=== PATIENT | female | born 1970 | race Asian ===

== ENCOUNTER 2016-03-18 07:05 | Emergency (ER) | payer MEDICARE, MEDICAID ==
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
== END 2016-03-18 08:25 | disposition home or self-care (01) ==
LOC: ER 07:05
DX: T74.21XA Adult sexual abuse, confirmed, initial encounter (principal); K29.70 Gastritis, unspecified, without bleeding; I10 Essential (primary) hypertension; Z88.1 Allergy status to other antibiotic agents; Z88.0 Allergy status to penicillin; Y07.9 Unspecified perpetrator of maltreatment and neglect
CPT/HCPCS: 81025-TC

== ENCOUNTER 2016-08-26 13:36 | Emergency (ER) | payer MEDICARE, MEDICAID ==
--- NOTE | 2016-08-26 14:13 | ED Physician Chart ---
Chief Complaint/HPI - Patient Information Date Seen:: 08/26/16 Time Seen:: 13:40 Chief Complaint:: Transient nausea. History of Present Illness:: Pt had transient nausea while she was having lunch earlier today. No vomiting. No unusual foodstuff ingestion. No dyspnea or lightheadedness. No vomiting/ diarrhea. Pt now feels well without recurrent N/V/D. No fever. No abdominal pain or discomfort. No lightheadedness. Allergies:: Allergies Allergy/AdvReac Type Severity Reaction Status Date / Time aspirin Allergy Verified 03/18/16 08:05 chicken derived Allergy Verified 03/18/16 08:07 ciprofloxacin [From Cipro] Allergy Verified 03/18/16 08:05 egg Allergy Verified 03/18/16 08:07 ibuprofen Allergy Verified 03/18/16 08:06 peanut Allergy Verified 03/18/16 08:06 Penicillins Allergy Verified 03/18/16 07:35 pork derived (porcine) Allergy Verified 08/26/16 13:50 shellfish derived Allergy Verified 03/18/16 08:06 acetaminophen AdvReac Verified 03/18/16 08:18 [From Darvocet-N] codeine AdvReac Verified 03/18/16 08:17 hydrocodone [From Vicodin] AdvReac Verified 03/18/16 08:19 iodine AdvReac Verified 03/18/16 08:18 meperidine [From Demerol] AdvReac Verified 03/18/16 08:19 morphine AdvReac Verified 03/18/16 08:18 propoxyphene AdvReac Verified 03/18/16 08:18 [From Darvocet-N] Vitals:: Vital Signs - 8 hr 08/26/16 13:50 Temp 98.6 F HR 114 RR 18 BP 160/100 O2 Sat % 95 Historian:: Patient Family MD/PCP:: Dr. Keene LMP:: Hysterectomy ' Review:: Nurse's Note Reviewed Review of Systems - Review of Systems General/Constitutional: No fever, No weight loss, No weakness, No edema, No loss of appetite Skin: No skin lesions Head: No headache, No light-headedness Eyes: No pain, No diplopia, Other ( R eye blindness since .) ENT: No earache, No nasal drainage, No sore throat Neck: No neck pain, No swelling, No thyromegaly, No stiffness, No mass noted Cardio Vascular: No chest pain, No palpitations, No edema Pulmonary: No SOB, No cough, No wheezing GI: Nausea (transient), No vomiting, No diarrhea, No pain G/U: No dysuria, No frequency, No hematuria Musculoskeletal: No bone or joint pain, No back pain, No muscle pain Endocrine: No polyuria, No polydipsia Psychiatric: Prior psych history, No depression Hematopoietic: No bruising, No lymphadenopathy Allergic/Immuno: No urticaria, No angioedema Neurological: No syncope, No focal symptoms, No weakness, No paresthesia, No headache, No dizziness, No confusion, No vertigo Past Medical History - Past Medical History Past Medical History: HTN, Asthma/COPD, Thyroid disorder, Other (Congenital R eye blindness, IBS.) Family History: Diabetes Melitus (mother), HTN (parents.) Social History: Non Smoker, No Alcohol, No Drug Use, Single, Other (lives with parents.) Employment:: on disability. Surgical History: Hysterectomy (), other (Tubal ligation ) Psychiatricy History: Schizophrenia Medication: Reviewed Family Medical History - Family Member Father History Unknown: Yes Ethnicity: Non- Living Status: Still Living Hx Family Cancer: No Hx Family Coronary Artery Disease: No Hx Family Congestive Heart Failure: No Hx Family Hypertension: Yes Hx Family Stroke: No Hx Family Diabetes: Yes Hx Family Seizures: No Hx Family Dementia: No Hx Family AIDS: No Hx Family HIV: No Hx Family COPD: No Hx Family Hepatitis: No Hx Family Psychiatric Problems: No Hx Family Tuberculosis: No Mother History Unknown: Yes Ethnicity: Non- Living Status: Still Living Hx Family Hypertension: Yes Physical Exam - Physical Examination General/Constitutional: Awake, Well-developed, well-nourished (female), Alert, No distress, Non-toxic appearing, Ambulatory Other Gen/Cons comments:: breathes comfortably, speaks clearly, interacts normally, and ambulates without difficulty. Head: Atraumatic Other Eyes comments:: R eye shows chronic changes with opacification of the pupil. L eye is normal Skin: Nl inspection, No rash, No skin lesions, No ecchymosis, Well hydrated, No lymphadenopathy ENMT: External ears, nose nl, Nasal exam nl, Oropharynx nl, Tonsils nl Neck: Nontender, Full ROM w/o pain, No JVD, No nuchal rigidity, No mass, No stridor Respiratory: Nl effort/Exclusion, Clear to Auscultation, No Wheeze/Rhonchi/Rales Cardio Vascular: RRR, No murmur, gallop, rubs GI: No tenderness/rebounding/guarding, No organomegaly, Normal BS's, Nondistended, No mass/bruits Other GI comments:: Abdomen is soft. Extremities: No edema Neuro/Psych: Alert/oriented (oriented x 3), Judgement/insight normal, Mood normal, Normal gait, No focal deficits (except R eye blindness.) ED Septic Shock - . Is Septic Shock (SBP<90, OR Lactate>4 mmol\L) present?: No - <6hrs of presentation: Vital Signs: Vital Signs - 8 hr 08/26/16 13:50 Temp 98.6 F HR 114 RR 18 BP 160/100 O2 Sat % 95 Reassessment (Disposition) - Reassessment Reassessment:: 1500 Pt has been repeatedly evaluated. Pt feels well and has been tolerating oral hydration well without N/V/D. Pt breathes comfortably and ambulates without difficulty. Pt requests to go home now and does not want further observation/management in hospital. Aftercare instructions have been given. Her father will drive her home. Reassessment Condition:: Improved - Diagnosis Diagnosis:: Transient nausea c/w food intolerance. Stable and currently asymptomatic. - Aftercare/Follow up Instructions Aftercare/Follow-Up Instructions:: Refer to Discharge Instructions Notes:: Continue present care. Clear liquid for now. May advance diet as tolerated starting this evening. F/U with PCP Dr. Keene in one day for recheck. Return to ER immediately if condition worsens or if any further questions/problems. Medication Prescribed:: None - Patient Disposition Discharge/Transfer:: Home Time:: 15:05 Condition at Disposition:: Stable, Improved
== END 2016-08-26 15:12 | disposition home or self-care (01) ==
LOC: ER 13:36
DX: K90.49 Malabsorption due to intolerance, not elsewhere classified (principal); R11.0 Nausea; I10 Essential (primary) hypertension; J45.909 Unspecified asthma, uncomplicated; J44.9 Chronic obstructive pulmonary disease, unspecified; E07.9 Disorder of thyroid, unspecified; F20.9 Schizophrenia, unspecified; Z90.710 Acquired absence of both cervix and uterus; Z88.6 Allergy status to analgesic agent; Z91.012 Allergy to eggs; Z91.010 Allergy to peanuts; Z91.09 Other allergy status, other than to drugs and biological substances
CPT/HCPCS: Z7502

== ENCOUNTER 2017-08-27 07:59 | Inpatient (IN) | payer MEDICARE, MEDICAID ==
--- NOTE | 2017-08-27 08:34 | ED Physician Chart ---
ED Chief Complaint/HPI - Patient Information Date Seen:: 08/27/17 Time Seen:: 08:15 Chief Complaint:: Chest Pain History of Present Illness:: onset x 24 hours of intermittent, exertional pressure type chest pain; pt denies trauma, H/As, S/T, neck pain, SOB, cough, Abd. Pain, A/N/V/D/C, fever, chills, or urinary s/s Allergies:: Allergies Allergy/AdvReac Type Severity Reaction Status Date / Time aspirin Allergy Verified 03/18/16 08:05 chicken derived Allergy Verified 03/18/16 08:07 ciprofloxacin [From Cipro] Allergy Verified 03/18/16 08:05 egg Allergy Verified 03/18/16 08:07 ibuprofen Allergy Verified 03/18/16 08:06 peanut Allergy Verified 03/18/16 08:06 Penicillins Allergy Verified 03/18/16 07:35 pork derived (porcine) Allergy Verified 08/26/16 13:50 shellfish derived Allergy Verified 03/18/16 08:06 acetaminophen AdvReac Verified 03/18/16 08:18 [From Darvocet-N] codeine AdvReac Verified 03/18/16 08:17 hydrocodone [From Vicodin] AdvReac Verified 03/18/16 08:19 iodine AdvReac Verified 03/18/16 08:18 meperidine [From Demerol] AdvReac Verified 03/18/16 08:19 morphine AdvReac Verified 03/18/16 08:18 propoxyphene AdvReac Verified 03/18/16 08:18 [From Darvocet-N] Historian:: Patient Review:: Nurse's Note Reviewed ED Review of Systems - Review of Systems General/Constitutional: No fever, No chills, No weight loss, Weakness, No diaphoresis, No edema, No loss of appetite Skin: No skin lesions, No rash, No bruising Head: No headache, No light-headedness Eyes: No loss of vision, No pain, No diplopia ENT: No earache, No nasal drainage, No sore throat, No tinnitus Neck: No neck pain, No swelling, No thyromegaly, No stiffness, No mass noted Cardio Vascular: Chest pain, No palpitations, No PND, No orthopnea, No edema Pulmonary: No SOB, No cough, No sputum, No wheezing GI: Nausea, No vomiting, No diarrhea, No pain, No melena, No hematochezia, No constipation, No hematemesis G/U: No dysuria, No frequency, No hematuria, No nacturia Immunology Specialist: No vaginal discharge, No abnormal vaginal bleed, No contraction Musculoskeletal: No bone or joint pain, No back pain, No muscle pain Endocrine: No polyuria, No polydipsia Psychiatric: Prior psych history, Depression, Anxiety, No suicidal ideation, No homicidal ideation, No auditory hallucination, No visual hallucination Hematopoietic: No bruising, No lymphadenopathy Allergic/Immuno: No urticaria, No angioedema Neurological: No syncope, No focal symptoms, Weakness, No paresthesia, Headache , No seizure, Dizziness, No confusion, Vertigo ED Past Medical History - Past Medical History Obtainable: Yes Past Medical History: HTN, PUD/GERD, Thyroid disorder Family History: HTN Social History: Non Smoker, No Alcohol, No Drug Use, Single, Lives With Parents Surgical History: None Psychiatricy History: Depression Medication: Reviewed Family Medical History - Family Member Father History Unknown: Yes Ethnicity: Non- Living Status: Still Living Hx Family Cancer: No Hx Family Coronary Artery Disease: No Hx Family Congestive Heart Failure: No Hx Family Hypertension: Yes Hx Family Stroke: No Hx Family Diabetes: Yes Hx Family Seizures: No Hx Family Dementia: No Hx Family AIDS: No Hx Family HIV: No Hx Family COPD: No Hx Family Hepatitis: No Hx Family Psychiatric Problems: No Hx Family Tuberculosis: No Mother History Unknown: Yes Ethnicity: Non- Living Status: Still Living Hx Family Cancer: No Hx Family Coronary Artery Disease: No Hx Family Congestive Heart Failure: No Hx Family Hypertension: No Hx Family Stroke: No Hx Family Diabetes: Yes Hx Family Seizures: No Hx Family Dementia: No Hx Family AIDS: No Hx Family HIV: No Hx Family COPD: No Hx Family Hepatitis: No Hx Family Psychiatric Problems: No Hx Family Tuberculosis: No ED Physical Exam - Physical Examination General/Constitutional: Awake, Well-developed, well-nourished, Alert, No distress, GCS 15, Non-toxic appearing, Ambulatory Head: Atraumatic Eyes: Lids, conjuctiva normal, PERRL, EOMI Skin: Nl inspection, No rash, No skin lesions, No ecchymosis, Well hydrated, No lymphadenopathy ENMT: External ears, nose nl, TM canals nl, Nasal exam nl, Lips, teeth, gums nl , Oropharynx nl, Tonsils nl Neck: Nontender, Full ROM w/o pain, No JVD, No nuchal rigidity, No bruit, No mass, No stridor Respiratory: Nl effort/Exclusion, Clear to Auscultation, No Wheeze/Rhonchi/Rales Cardio Vascular: RRR, No murmur, gallop, rubs, NL S1 S2, Carotid/Femoral/Distal pulses equal bilaterally GI: No tenderness/rebounding/guarding, No organomegaly, No hernia, Normal BS's, Nondistended, No mass/bruits, No McBurney tenderness : No CVA tenderness Extremities: No tenderness or effusion, Full ROM, normal strength in all extremities, No edema, Normal digits & nails Neuro/Psych: Alert/oriented, DTR's symmetric, Normal sensory exam, Normal motor strength, Judgement/insight normal, Mood normal, Normal gait, No focal deficits Misc: Normal back, No paraspinal tenderness ED Labs/Radiology/EKG Results - Lab Results Comments:: unremarkable - Radiology Results Comments:: NAD - EKG Interpretations EKG Time:: 08:51 Rate & Rhythm: 59; SB Comments:: non-specific st-t changes ED Septic Shock - . Is Septic Shock (SBP<90, OR Lactate>4 mmol\L) present?: No ED Reassessment (Disposition) - Reassessment Reassessment Condition:: Improved - Diagnosis Diagnosis:: Chest Pain; Angina Pectoris; Hypertension - Aftercare/Follow up Instructions Aftercare/Follow-Up Instructions:: Counseled pt regarding lab results/diagnosis & need follow up, Counseled pt & family regarding lab results/diagnosis & need follow up - Patient Disposition Discharge/Transfer:: Acute Care w/in this hosp Accepting Physician:: Dr. Real Time Called:: 929 Time Responded:: 09:30 Admitted to:: Telemetry Spoke to:: Dr. Real Admitting Medical Physician:: Dr. Real Condition at Disposition:: Stable, Improved
[2017-08-27 08:45] LABS: % BASOPHILS 0.6 % (0.0-2.0); % EOSINOPHILS 2.4 % (0.0-5.0); % LYMPHOCYTES 30.6 % (20.0-50.0); % MONOCYTES 9.7 % (2.0-10.0); % NEUTROPHILS 56.7 % (40.0-80.0); EOSINOPHILE ABSOLUTE 0.1 Th/cmm (0.1-0.4); HEMATOCRIT 40.7 % (41.0-60); HEMOGLOBIN 13.4 gm/dL (12-16); LYMPHOCYTE ABSOLUTE 1.8 Th/cmm (1.5-3.0); MEAN CELL VOLUME 92.5 fl (81-100); MEAN CORPUSCULAR HEMOGLOBIN 30.4 pg (27.0-31.0); MEAN CORPUSCULAR HGB CONC 32.9 pg (28.0-36.0); MEAN PLATELET VOLUME 7.5 fl; MONOCYTE ABSOLUTE 0.6 Th/cmm (0.3-1.0); NEUTROPHILE ABSOLUTE 3.5 Th/cmm (1.8-8.0); PLATELET COUNT 275 Th/cmm (150-400); RED CELL DISTRIBUTION WIDTH 12.1 % (11.5-20.0)
[2017-08-27 08:59] LABS: INR 0.99 (0.5-1.4); PROTHROMBIN TIME (TEST) 10.3 SECONDS (9.5-11.5)
[2017-08-27 09:08] LABS: ALB/GLOB RATIO 1.3 (1.0-1.8); ALBUMIN 4.5 gm/dL (3.7-5.3); ALKALINE PHOSPHATASE 52 U/L (34-104); ANION GAP 8.8 (7.0-16.0); BILIRUBIN,TOTAL 0.5 mg/dL (0.3-1.0); BUN - UREA NITROGEN 9 mg/dL (7-25); CALCIUM SERUM 10.3 mg/dL (8.6-10.3); CARBON DIOXIDE 32.3 mEq/L (21.0-31.0); CHLORIDE 100 mEq/L (98-107); CHOLESTEROL 251 mg/dL (<200); CREATININE - SERUM 0.7 mg/dL (0.6-1.2); CREATININE KINASE 111 U/L (30-223); GFR AFRICAN-AMERICAN > 60.0 ml/min (>90); GFR NON AFRICAN-AMERICAN > 60.0 ml/min; GLUCOSE 97 mg/dL (70-105); HDL -HIGH DENSITY LIPOPROTEIN 79 mg/dL (23-92); POTASSIUM SERUM 4.1 mEq/L (3.5-5.1); SGOT 26 U/L (13-39); SGPT/ALT 16 U/L (7-52); SODIUM SERUM 137 mEq/L (136-145); TOTAL PROTEIN,SERUM 8.1 gm/dL (6.0-8.3); TRIGLYCERIDES 69 mg/dL (<150)
--- NOTE | 2017-08-27 10:59 | Diagnostic Imaging Report ---
Portable chest x-ray HISTORY: Pain Allowing for portable technique in a poor inspiration, the heart size is normal. Increased density seen in the left lower hemithorax with obscuration of the left hemidiaphragm. Findings suggest a small pleural effusion. Underlying parenchymal pathology including pneumonia and/or atelectasis cannot be excluded. No hilar or mediastinal abnormalities. IMPRESSION: 1. Increased density within the left lower hemithorax consistent with a pleural effusion. Underlying parenchymal pathology including pneumonia and/or atelectasis cannot be excluded. Clinical correlation is needed.
[2017-08-27 14:44] VITALS: BP 152/80
--- NOTE | 2017-08-27 21:28 | History & Physical ---
ADMIT DATE: 08/27/2017 CHIEF COMPLAINT: Chest pain. HISTORY OF PRESENT ILLNESS: The patient is 47-year-old female with long history of psychosis, presented to the Emergency Room with chest pain for 7 days duration, evaluated by the ER physician, admitted to the hospital for more workup. The patient denies any fever, chills, nausea, vomiting, or abdominal pain. PAST MEDICAL HISTORY: Significant for hypertension, degenerative joint disease, hyperlipidemia, and psychosis. PAST SURGICAL HISTORY: Hysterectomy and tubal ligation. ALLERGIES: None. MEDICATIONS: Follow admission reconciliation. SOCIAL HISTORY: No smoking, no alcohol, no drug. FAMILY HISTORY: Noncontributory. REVIEW OF SYSTEMS: IMMUNOSYSTEM: No history of chronic immune disorder. CARDIOVASCULAR SYSTEM: No coronary artery disease. ENDOCRINE SYSTEM: No diabetes or thyroid problem. GASTROINTESTINAL SYSTEM: No upper or lower gastrointestinal bleed. NEUROLOGICAL SYSTEM: No seizure disorder. MUSCULOSKELETAL SYSTEM: No muscular dystrophy. HEMATOLOGICAL SYSTEM: No bleeding tendency. RESPIRATORY SYSTEM: No asthma. GENITOURINARY SYSTEM: No dysuria or hematuria. PHYSICAL EXAMINATION: GENERAL: She is awake, alert, oriented. VITAL SIGNS: Temperature is 98.2, heart rate 63, and blood pressure 127/80. HEENT: Normocephalic. Pupils reacting equally to light and accommodation. Sclerae clear. NECK: Supple. Negative for lymphadenopathy, JVD, or bruit. CHEST: Entry of air bilateral normal. No rhonchi or wheezing. HEART: S1, S2 normal, no gallop rhythm. ABDOMEN: Soft, bowel sounds positive. EXTREMITIES: No edema. BACK: No tenderness. SKIN: Intact. NEUROLOGIC: She is awake, alert, oriented. She has mild tremor. LABORATORY DATA: White blood cell 6.0, hemoglobin 13.4, hematocrit 40.7, and platelet is 275. Sodium 137, potassium 4.1, BUN 9, and creatinine 0.7. ASSESSMENT: 1. Chest pain. 2. Hypertension. 3. Hyperlipidemia. 4. Psychosis. PLAN: The patient was admitted to the hospital under Dr. Real's service. The patient started on cardiac diet, nitroglycerin sublingual p.r.n. for chest pain. EKG in a.m. CPK, troponin q. 8 hours x3. The patient is a full code. The patient is already on Lovenox. JOB# [id number]
--- NOTE | 2017-08-28 06:19 | Consultation ---
DATE OF CONSULTATION: 08/27/[address] Real. HISTORY OF PRESENT ILLNESS: This is a 47-year-old female patient who had been complaining of chest pain. Following this, the patient came to the Emergency Room. The patient was found to have uncontrolled hypertension with chest pain. PAST MEDICAL HISTORY: Hypertension, GERD, and hypothyroid. FAMILY HISTORY: Unremarkable. SOCIAL HISTORY: No history of smoking, alcohol abuse. ALLERGIES: The patient has allergy to ASPIRIN, CIPROFLOXACIN, EGG, IBUPROFEN, PEANUT, PENICILLIN, ____, SHELLFISH, DARVOCET, CODEINE, VICODIN, IODINE, MEPERIDINE, and MORPHINE. PHYSICAL EXAMINATION: VITAL SIGNS: Blood pressure on admission 170/80, at the present time 146/80; pulse 70; and respirations 20. HEAD: Normocephalic. No lumps or bumps. EYES: Pupils equal, reactive to light. Fundi show AV nicking, sclerae white, conjunctivae pink. NECK: Carotid 2+. Normal upstroke. JVD flat. Thyroid not palpable. Lymph nodes not palpable. CHEST: Shows increased AP diameter. No kyphosis, scoliosis. LUNGS: Bilateral bronchovesicular breath sounds. HEART: PMI fifth intercostal space with lateral to midclavicular line. S1, S2. No S3, S4, soft systolic murmur. ABDOMEN: Soft. Liver, spleen not palpable. No organomegaly. Bowel sounds active. NEUROLOGIC: Unremarkable. EXTREMITIES: Peripheral pulses 2+. No pedal edema. DIAGNOSES: Chest pain, rule out coronary artery disease, uncontrolled hypertension, gastroesophageal reflux disease, hypothyroid, and depression. PLAN: We will get EKG, echocardiogram, control the blood pressure. JOB# [id number]
[2017-08-28] MEDS: Pantoprazole 40 mg EC Tab PO SCH (06:38)
[2017-08-28] MEDS: Atorvastatin Calcium 10 MG TAB PO SCH (08:43)
[2017-08-28] MEDS ORDERED: PLECANATIDE PO SCH (09:00)
--- NOTE | 2017-08-28 21:25 | Internal Medicine Prog Note ---
Internal Medicine Subjective - Subjective Service Date: 08/28/17 Patient seen and examined:: with staff (SHE DENIES ANY CHEST PAIN.) Patient is:: awake, verbal, in bed, talking, confused Per staff patient has:: no adverse event Internal Medicine Objective - Results Result Diagrams: 08/27/17 08:37 08/27/17 08:37 Recent Labs: Laboratory Last Values WBC 6.0 Th/cmm (4.8-10.8) 08/27/17 08:37 RBC 4.40 Mil/cmm (3.80-5.10) 08/27/17 08:37 Hgb 13.4 gm/dL (12-16) 08/27/17 08:37 Hct 40.7 % (41.0-60) L 08/27/17 08:37 MCV 92.5 fl (81-100) 08/27/17 08:37 MCH 30.4 pg (27.0-31.0) 08/27/17 08:37 MCHC Differential 32.9 pg (28.0-36.0) 08/27/17 08:37 RDW 12.1 % (11.5-20.0) 08/27/17 08:37 Plt Count 275 Th/cmm (150-400) 08/27/17 08:37 MPV 7.5 fl 08/27/17 08:37 Neutrophils % 56.7 % (40.0-80.0) 08/27/17 08:37 Lymphocytes % 30.6 % (20.0-50.0) 08/27/17 08:37 Monocytes % 9.7 % (2.0-10.0) 08/27/17 08:37 Eosinophils % 2.4 % (0.0-5.0) 08/27/17 08:37 Basophils % 0.6 % (0.0-2.0) 08/27/17 08:37 PT 10.3 SECONDS (9.5-11.5) 08/27/17 08:37 INR 0.99 (0.5-1.4) 08/27/17 08:37 Sodium 137 mEq/L (136-145) 08/27/17 08:37 Potassium 4.1 mEq/L (3.5-5.1) 08/27/17 08:37 Chloride 100 mEq/L (98-107) 08/27/17 08:37 Carbon Dioxide 32.3 mEq/L (21.0-31.0) H 08/27/17 08:37 Anion Gap 8.8 (7.0-16.0) 08/27/17 08:37 BUN 9 mg/dL (7-25) 08/27/17 08:37 Creatinine 0.7 mg/dL (0.6-1.2) 08/27/17 08:37 Est GFR ( Amer) > 60.0 ml/min (>90) 08/27/17 08:37 Est GFR (Non-Af Amer) > 60.0 ml/min 08/27/17 08:37 BUN/Creatinine Ratio 12.9 08/27/17 08:37 Glucose 97 mg/dL (70-105) 08/27/17 08:37 Calcium 10.3 mg/dL (8.6-10.3) 08/27/17 08:37 Total Bilirubin 0.5 mg/dL (0.3-1.0) 08/27/17 08:37 AST 26 U/L (13-39) 08/27/17 08:37 ALT 16 U/L (7-52) 08/27/17 08:37 Alkaline Phosphatase 52 U/L (34-104) 08/27/17 08:37 Creatine Kinase 70 U/L (30-223) 08/28/17 08:35 Troponin I < 0.01 ng/mL (0.01-0.05) L 08/28/17 08:35 B-Natriuretic Peptide 46.6 pg/mL (5.0-100.0) 08/27/17 08:37 Total Protein 8.1 gm/dL (6.0-8.3) 08/27/17 08:37 Albumin 4.5 gm/dL (3.7-5.3) 08/27/17 08:37 Globulin 3.6 gm/dL 08/27/17 08:37 Albumin/Globulin Ratio 1.3 (1.0-1.8) 08/27/17 08:37 Triglycerides 69 mg/dL (<150) 08/27/17 08:37 Cholesterol 251 mg/dL (<200) H 08/27/17 08:37 LDL Cholesterol Direct 150 mg/dL (75-193) 08/27/17 08:37 HDL Cholesterol 79 mg/dL (23-92) 08/27/17 08:37 Serum , Qual NEGATIVE (NEGATIVE) 08/27/17 08:37 - Physical Exam Vitals and I&O: Vital Signs Temp 97.7 F 08/28/17 20:00 Pulse 58 08/28/17 20:00 Resp 20 08/28/17 20:00 BP 123/79 08/28/17 20:00 Pulse Ox 96 08/28/17 20:00 Intake & Output 08/28/17 08/28/17 08/29/17 06:59 18:59 06:59 Intake Total 300 1100 Balance 300 1100 Weight (lbs) 56.727 kg 56.744 kg Intake: Oral 300 1100 Other: # Voids 6 4 # Bowel Movements 0 0 Weight Source Bedscale Bedscale Active Medications: Current Medications Atorvastatin Calcium (Lipitor) 10 mg PO DAILY [facility]; Protocol Stop: 10/27/17 08:59 Last Admin: 08/28/17 08:43 Dose: 10 mg Clonazepam (Klonopin) 0.5 mg PO PRN PRN; Protocol PRN Reason: Anxiety Stop: 10/26/17 20:08 Divalproex Sodium (Depakote Er) 500 mg PO HS [facility]; Protocol Stop: 10/26/17 20:59 Last Admin: 08/28/17 20:42 Dose: 500 mg Docusate Sodium (Colace) 250 mg PO HS [facility] Stop: 10/26/17 20:59 Last Admin: 08/28/17 20:42 Dose: 250 mg Gabapentin (Neurontin) 300 mg PO HS [facility] Stop: 10/26/17 20:59 Last Admin: 08/28/17 20:42 Dose: 300 mg Losartan Potassium (Cozaar) 50 mg PO DAILY [facility] Stop: 10/27/17 08:59 Last Admin: 08/28/17 08:44 Dose: 50 mg Mirtazapine (Remeron) 15 mg PO HS [facility]; Protocol Stop: 10/26/17 20:59 Last Admin: 08/27/17 21:50 Dose: 15 mg Miscellaneous (Plecanatide [Trulance]) 1 tab PO DAILY [facility] Stop: 10/27/17 08:59 Nitroglycerin (Nitrostat) 0.4 mg SL Q5MIN PRN PRN Reason: Chest Pain Stop: 10/26/17 09:57 Pantoprazole Sodium (Protonix) 40 mg PO QDAC [facility] Stop: 10/27/17 07:29 Last Admin: 08/28/17 06:38 Dose: 40 mg Risperidone (Risperdal) 2 mg PO BID [facility] Stop: 10/27/17 08:59 Last Admin: 08/28/17 16:24 Dose: 2 mg General: alert HEENT: NC/AT, PERRLA, EOMI, anicteric sclerae, throat clear Neck: Supple, No JVD, No thyromegaly, +2 carotid pulse wo bruit, No LAD Lungs: CTAB Cardiovascular: RRR, Normal S2, without murmur Abdomen: non-tender, non-distended Neurological: no change Internal Medicine Assmt/Plan - Assessment Assessment: 1.CHEST PAIN 2.MILD DEMENTIA. - Plan Plan: CONSULT
[2017-08-29] MEDS: Pantoprazole 40 mg EC Tab PO SCH (07:10)
[2017-08-29] MEDS: Atorvastatin Calcium 10 MG TAB PO SCH (09:13)
--- NOTE | 2017-08-29 10:37 | Consultation ---
DATE OF CONSULTATION: 08/29/2017 AGE: 47. SEX: Female. PHYSICIAN: Dr. Real. DISTILLERY SUPERVISOR: Dr. Fonscea. TYPE OF THE REPORT: Psychiatric consult. REASON FOR THE CONSULT: Monitoring psychotropic medications. HISTORY OF PRESENT ILLNESS: The patient is a 47-year-old female who is well known to me for treatment of psychosis. The patient was admitted to the hospital because of chest pain and Dr. Real asked me to evaluate the patient and monitor her medications. The patient currently is taking Klonopin as well as Depakote and gabapentin and Remeron. The patient denies any side effects of medications. She is also taking Risperdal in a dose of 2 mg twice a day. The patient denies any auditory or visual hallucinations and she denies any thoughts of suicide or homicide. The patient also has been calm and cooperative while in the hospital. PAST PSYCHIATRIC HISTORY: The patient has a long history of schizoaffective disorder. The patient is taking the above medications. PAST MEDICAL HISTORY: The patient has history of schizoaffective disorder. SOCIAL HISTORY: No known alcohol or drug use. MENTAL STATUS EXAM: The patient appears her stated age. Anxious. Cooperative. Sad affect. In a depressed mood. Thought processes are mainly goal directed. The patient denies auditory or visual hallucinations or delusions. She denies any thoughts of suicide or homicide. She is alert and oriented to time, place, person, and situation. Intact immediate, recent and remote memories. Fair insight. Fair judgment. ASSESSMENT: PRIMARY DIAGNOSIS: Schizoaffective disorder, mixed type, without psychotic features. TREATMENT PLAN: We will continue current psychotropic medications. Also, we will monitor Depakote blood level. Also, we will follow up with her behavior and will provide supportive therapy for the patient. Also, we will get a Depakote blood level. Thanks to Dr. Real and we will follow up with you. [facility]# [id number]
--- NOTE | 2017-08-29 12:21 | Cardiology ---
08/27/[address] Real. M-MODE ECHOCARDIOGRAM: Mitral valve, anterior leaflet of mitral valve shows normal excursion, EF velocity. Posterior leaflet of mitral valve shows normal excursion. Left ventricle posterior wall shows increased thickness, normal excursion. Interventricular septum shows increased thickness, normal excursion, hypertrophy of the left ventricle, ejection fraction 55%. Left atrium normal. Aortic root shows normal dimension, normal excursion of aortic leaflets. CONCLUSION: Hypertrophy of the left ventricle, ejection fraction 55%. 2D ECHO: Long axis view showed normal-sized left ventricle with normal wall motion. There is hypertrophy of the left ventricle. Left atrium normal. Aortic root shows normal dimension, normal excursion of aortic leaflets. Short axis view of mitral valve normal. Short axis view of aortic valve normal. Apical four chamber view showed normal-sized left ventricle with hypertrophy of the left ventricle. Left atrium normal. Right ventricular cavity and right atrium normal. No pericardial effusion. CONCLUSION: Hypertrophy of the left ventricle, ejection fraction 55%. Doppler study shows mild tricuspid regurgitation, mild pulmonary regurgitation. JOB# [id number]
--- NOTE | 2017-08-29 19:56 | Internal Medicine Prog Note ---
Internal Medicine Subjective - Subjective Service Date: 08/29/17 Patient seen and examined:: with staff (SHE FEELS WELL) Patient is:: awake, verbal, in bed, talking, confused Per staff patient has:: no adverse event Internal Medicine Objective - Results Result Diagrams: 08/27/17 08:37 08/27/17 08:37 Recent Labs: Laboratory Last Values WBC 6.0 Th/cmm (4.8-10.8) 08/27/17 08:37 RBC 4.40 Mil/cmm (3.80-5.10) 08/27/17 08:37 Hgb 13.4 gm/dL (12-16) 08/27/17 08:37 Hct 40.7 % (41.0-60) L 08/27/17 08:37 MCV 92.5 fl (81-100) 08/27/17 08:37 MCH 30.4 pg (27.0-31.0) 08/27/17 08:37 MCHC Differential 32.9 pg (28.0-36.0) 08/27/17 08:37 RDW 12.1 % (11.5-20.0) 08/27/17 08:37 Plt Count 275 Th/cmm (150-400) 08/27/17 08:37 MPV 7.5 fl 08/27/17 08:37 Neutrophils % 56.7 % (40.0-80.0) 08/27/17 08:37 Lymphocytes % 30.6 % (20.0-50.0) 08/27/17 08:37 Monocytes % 9.7 % (2.0-10.0) 08/27/17 08:37 Eosinophils % 2.4 % (0.0-5.0) 08/27/17 08:37 Basophils % 0.6 % (0.0-2.0) 08/27/17 08:37 PT 10.3 SECONDS (9.5-11.5) 08/27/17 08:37 INR 0.99 (0.5-1.4) 08/27/17 08:37 Sodium 137 mEq/L (136-145) 08/27/17 08:37 Potassium 4.1 mEq/L (3.5-5.1) 08/27/17 08:37 Chloride 100 mEq/L (98-107) 08/27/17 08:37 Carbon Dioxide 32.3 mEq/L (21.0-31.0) H 08/27/17 08:37 Anion Gap 8.8 (7.0-16.0) 08/27/17 08:37 BUN 9 mg/dL (7-25) 08/27/17 08:37 Creatinine 0.7 mg/dL (0.6-1.2) 08/27/17 08:37 Est GFR ( Amer) > 60.0 ml/min (>90) 08/27/17 08:37 Est GFR (Non-Af Amer) > 60.0 ml/min 08/27/17 08:37 BUN/Creatinine Ratio 12.9 08/27/17 08:37 Glucose 97 mg/dL (70-105) 08/27/17 08:37 Calcium 10.3 mg/dL (8.6-10.3) 08/27/17 08:37 Total Bilirubin 0.5 mg/dL (0.3-1.0) 08/27/17 08:37 AST 26 U/L (13-39) 08/27/17 08:37 ALT 16 U/L (7-52) 08/27/17 08:37 Alkaline Phosphatase 52 U/L (34-104) 08/27/17 08:37 Creatine Kinase 70 U/L (30-223) 08/28/17 08:35 Troponin I < 0.01 ng/mL (0.01-0.05) L 08/28/17 08:35 B-Natriuretic Peptide 46.6 pg/mL (5.0-100.0) 08/27/17 08:37 Total Protein 8.1 gm/dL (6.0-8.3) 08/27/17 08:37 Albumin 4.5 gm/dL (3.7-5.3) 08/27/17 08:37 Globulin 3.6 gm/dL 08/27/17 08:37 Albumin/Globulin Ratio 1.3 (1.0-1.8) 08/27/17 08:37 Triglycerides 69 mg/dL (<150) 08/27/17 08:37 Cholesterol 251 mg/dL (<200) H 08/27/17 08:37 LDL Cholesterol Direct 150 mg/dL (75-193) 06/19/18 08:37 HDL Cholesterol 79 mg/dL (23-92) 08/27/17 08:37 Serum , Qual NEGATIVE (NEGATIVE) 08/27/17 08:37 Valproic Acid 51.9 ug/mL (50.0-100.0) 08/29/17 09:40 - Physical Exam Vitals and I&O: Vital Signs Temp 97.1 F 08/29/17 15:52 Pulse 104 08/29/17 15:52 Resp 17 08/29/17 15:52 BP 139/93 08/29/17 15:52 Pulse Ox 100 08/29/17 15:52 Intake & Output 08/29/17 08/29/17 08/30/17 06:59 18:59 06:59 Intake Total 400 Balance 400 Weight (lbs) 58.967 kg Intake: Oral 400 Other: # Voids 4 # Bowel Movements 0 Weight Source Bedscale Active Medications: Current Medications Atorvastatin Calcium (Lipitor) 10 mg PO DAILY [facility]; Protocol Stop: 10/27/17 08:59 Last Admin: 08/29/17 09:13 Dose: 10 mg Clonazepam (Klonopin) 0.5 mg PO PRN PRN; Protocol PRN Reason: Anxiety Stop: 10/26/17 20:08 Divalproex Sodium (Depakote Er) 500 mg PO HS [facility]; Protocol Stop: 10/26/17 20:59 Last Admin: 08/28/17 20:42 Dose: 500 mg Docusate Sodium (Colace) 250 mg PO HS [facility] Stop: 10/26/17 20:59 Last Admin: 08/28/17 20:42 Dose: 250 mg Gabapentin (Neurontin) 300 mg PO HS [facility] Stop: 10/26/17 20:59 Last Admin: 08/28/17 20:42 Dose: 300 mg Losartan Potassium (Cozaar) 50 mg PO DAILY [facility] Stop: 10/27/17 08:59 Last Admin: 08/29/17 09:14 Dose: 50 mg Mirtazapine (Remeron) 15 mg PO HS [facility]; Protocol Stop: 10/26/17 20:59 Last Admin: 08/28/17 21:47 Dose: 15 mg Miscellaneous (Plecanatide [Trulance]) 1 tab PO DAILY [facility] Stop: 10/27/17 08:59 Nitroglycerin (Nitrostat) 0.4 mg SL Q5MIN PRN PRN Reason: Chest Pain Stop: 10/26/17 09:57 Pantoprazole Sodium (Protonix) 40 mg PO QDAC [facility] Stop: 10/27/17 07:29 Last Admin: 08/29/17 07:10 Dose: 40 mg Risperidone (Risperdal) 2 mg PO BID [facility] Stop: 10/27/17 08:59 Last Admin: 08/29/17 18:39 Dose: 2 mg General: alert HEENT: NC/AT, PERRLA, EOMI, anicteric sclerae, throat clear Neck: Supple, No JVD, No thyromegaly, +2 carotid pulse wo bruit, No LAD Lungs: CTAB Cardiovascular: RRR, Normal S2, without murmur Abdomen: non-tender, non-distended Neurological: no change Internal Medicine Assmt/Plan - Assessment Assessment: 1.CHEST PAIN 2.MILD DEMENTIA. - Plan Plan: CONTINUE ON CURRENT MEDICATION AND DIET.
[2017-08-29] MEDS ORDERED: Magnesium Hydroxide (MOM) 30 mL UDC PO PRN (20:51)
[2017-08-30] MEDS: Pantoprazole 40 mg EC Tab PO SCH (06:30)
[2017-08-30] MEDS: Atorvastatin Calcium 10 MG TAB PO SCH (09:19)
--- NOTE | 2017-08-30 23:33 | Progress Notes ---
DATE: SUBJECTIVE: Chart reviewed and the patient interviewed. Also discussed the patient's condition with the staff and reviewed records and labs. The patient is still anxious and "I want to go home." The patient is compliant with taking her medications and the patient denies any side effects of her medications. She is denying any auditory or visual hallucinations or delusions. She also denies any thoughts of suicide or homicide. ASSESSMENT: The patient is not psychotic or suicidal or homicidal at this time. TREATMENT PLAN: Continue current treatment and medications. Also, continue to monitor behavior and continue to work on her medical problems and medical issues. JOB# [id number]
--- NOTE | 2017-08-30 23:54 | Discharge Summary ---
DATE OF DISCHARGE: 08/30/2017 FINAL DIAGNOSES: 1. Chest pain secondary to acute costochondritis. 2. Uncontrolled hypertension. 3. Hyperlipidemia. 4. Psychosis. REVIEW OF HISTORY: The patient is a 47-year-old female with long history of hypertension, hyperlipidemia, psychosis, presented to the Emergency Room with chest pain, evaluated by the ER physician, admitted to telemetry. PHYSICAL EXAMINATION: CHEST: Clear to auscultation. ABDOMEN: Soft, bowel sounds positive. EXTREMITIES: No edema. The patient admitted to telemetry, started on cardiac diet, nitroglycerin sublingual p.r.n. for chest pain, troponin, EKG in a.m. Cardiac consultation obtained. Psych evaluation obtained. COURSE OF HOSPITALIZATION: During hospitalization, the patient remained stable clinically. On 08/29/2017, the patient was feeling better, no chest pain, no shortness of breath, no nausea, no vomiting. Blood pressure was improving. Disposition on 08/30/2017, the patient feels well. No chest pain, no shortness of breath. Chest clear to auscultation. Abdomen soft, bowel sounds positive. DISPOSITION: The patient is going to be discharged home. FOLLOWUP: To follow up with primary care physician as outpatient. CONDITION ON DISCHARGE: Stable. MEDICATIONS: Follow discharge reconciliation. [facility]# [id number]
== END 2017-08-30 17:19 | disposition home or self-care (01) | DRG 206 ==
LOC: ER 07:59 → TELE 10:08 → MSI 08-29 14:06
PROVIDERS: ADMIT Family Medicine; ATTEND Family Medicine
DX: M94.0 Chondrocostal junction syndrome [Tietze] (principal); I10 Essential (primary) hypertension; E78.5 Hyperlipidemia, unspecified; E03.9 Hypothyroidism, unspecified; K21.9 Gastro-esophageal reflux disease without esophagitis; I20.9 Angina pectoris, unspecified; F32.9 Major depressive disorder, single episode, unspecified; M19.90 Unspecified osteoarthritis, unspecified site; F03.90 Unspecified dementia, unspecified severity, without behavioral disturbance, psychotic disturbance, mood disturbance, and anxiety; F25.0 Schizoaffective disorder, bipolar type; Z88.6 Allergy status to analgesic agent; Z88.1 Allergy status to other antibiotic agents; Z91.041 Radiographic dye allergy status; Z91.012 Allergy to eggs; Z82.49 Family history of ischemic heart disease and other diseases of the circulatory system; Z88.5 Allergy status to narcotic agent; Z91.010 Allergy to peanuts; Z88.0 Allergy status to penicillin; Z91.013 Allergy to seafood; Z91.018 Allergy to other foods
CPT/HCPCS: 36415-UA; 71045-TC; 80053-TC; 80061-TC; 80164-TC; 82550-TC; 83880-TC; 84484-TC; 84703-TC; 85025-TC; 85610-TC; 93005; 94760; Z7610

== ENCOUNTER 2018-02-26 11:36 | Emergency (ER) | payer MEDICARE, MEDICAID ==
[2018-02-26 12:16] LABS: URINE SOURCE RANDOM
[2018-02-26 12:21] LABS: URINE BILIRUBIN NEGATIVE (NEGATIVE); URINE BLOOD NEGATIVE (NEGATIVE); URINE GLUCOSE (UA) NEGATIVE (NEGATIVE); URINE KETONE NEGATIVE (NEGATIVE); URINE LEUKOCYTE ESTERASE NEGATIVE (NEGATIVE); URINE NITRATE NEGATIVE (NEGATIVE); URINE PH 6.5 (4.6 - 8.0); URINE PROTEIN NEGATIVE (NEGATIVE); URINE UROBILINOGEN 0.2 E.U./dL (0.2 - 1.0)
[2018-02-26 12:23] LABS: URINE COLOR LIGHT YELLOW
[2018-02-26 12:24] LABS: URINE CLARITY CLEAR (CLEAR)
[2018-02-26 13:23] LABS: URINE MICROSCOPIC INDICATED? YES
[2018-02-26 13:55] LABS: URINE RBC NONE SEEN /hpf (0-5); URINE WBC 0-2 /hpf (0-5)
[2018-02-26 13:56] LABS: URINE BACTERIA OCCASIONAL /hpf (NONE SEEN); URINE EPITHELIAL CELLS FEW /lpf (FEW)
--- NOTE | 2018-02-26 16:04 | ED Physician Chart ---
ED Chief Complaint/HPI - Patient Information Date Seen:: 02/26/18 Time Seen:: 11:45 Chief Complaint:: Dysuria History of Present Illness:: onset x 3 days of dysuria and urinary hesitancy; pt denies trauma, LOC, ALOC, AMS, H/As, S/T, neck pain, cough, C/P, SOB, Abd. 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 Allergies:: Allergies Allergy/AdvReac Type Severity Reaction Status Date / Time aspirin Allergy Verified 02/26/18 11:55 chicken derived Allergy Verified 02/26/18 11:55 ciprofloxacin [From Cipro] Allergy Verified 02/26/18 11:55 egg Allergy Verified 02/26/18 11:55 ibuprofen Allergy Verified 02/26/18 11:55 peanut Allergy Verified 02/26/18 11:55 Penicillins Allergy Verified 02/26/18 11:55 pork derived (porcine) Allergy Verified 02/26/18 11:55 shellfish derived Allergy Verified 02/26/18 11:55 acetaminophen AdvReac Verified 02/26/18 11:55 [From Darvocet-N] codeine AdvReac Verified 03/18/16 08:17 hydrocodone [From Vicodin] AdvReac Verified 03/18/16 08:19 iodine AdvReac Verified 03/18/16 08:18 meperidine [From Demerol] AdvReac Verified 03/18/16 08:19 morphine AdvReac Verified 03/18/16 08:18 propoxyphene AdvReac Verified 03/18/16 08:18 [From Darvocet-N] Vitals:: Vital Signs - 8 hr 02/26/18 02/26/18 11:47 13:57 Temp 98.7 F 97.8 F HR 96 74 RR 18 16 BP 137/92 129/64 O2 Sat % 98 99 Historian:: Patient Review:: Nurse's Note Reviewed ED Review of Systems - Review of Systems General/Constitutional: Fever, No chills, No weight loss, No weakness, No diaphoresis, No edema, No loss of appetite Skin: No skin lesions, No rash, No bruising Head: No headache, No light-headedness Eyes: No loss of vision, No pain, No diplopia ENT: No earache, No nasal drainage, No sore throat, No tinnitus Neck: No neck pain, No swelling, No thyromegaly, No stiffness, No mass noted Cardio Vascular: No chest pain, No palpitations, No PND, No orthopnea, No edema Pulmonary: No SOB, No cough, No sputum, No wheezing GI: Nausea, No vomiting, No diarrhea, No pain, No melena, No hematochezia, No constipation, No hematemesis G/U: Dysuria, No frequency, No hematuria, No nacturia Meter Attendant: No vaginal discharge, No abnormal vaginal bleed, No contraction Musculoskeletal: No bone or joint pain, No back pain, No muscle pain Endocrine: No polyuria, No polydipsia Psychiatric: No prior psych history, No depression, No anxiety, No suicidal ideation, No homicidal ideation, No auditory hallucination, No visual hallucination Hematopoietic: No bruising, No lymphadenopathy Allergic/Immuno: No urticaria, No angioedema Neurological: No syncope, No focal symptoms, No weakness, No paresthesia, No headache, Seizure, Dizziness, No confusion, Vertigo ED Past Medical History - Past Medical History Obtainable: Yes Past Medical History: HTN, Dyslipidemia, Seizures Family History: HTN Social History: Non Smoker, No Alcohol, No Drug Use, Single Surgical History: Hysterectomy Psychiatricy History: None Medication: Reviewed Family Medical History - Family Member Father History Unknown: Yes Ethnicity: Non- Living Status: Still Living Hx Family Cancer: No Hx Family Coronary Artery Disease: No Hx Family Congestive Heart Failure: No Hx Family Hypertension: Yes Hx Family Stroke: No Hx Family Diabetes: Yes Hx Family Seizures: No Hx Family Dementia: No Hx Family AIDS: No Hx Family HIV: No Hx Family COPD: No Hx Family Hepatitis: No Hx Family Psychiatric Problems: No Hx Family Tuberculosis: No Mother History Unknown: Yes Ethnicity: Non- Living Status: Still Living Hx Family Cancer: No Hx Family Coronary Artery Disease: No Hx Family Congestive Heart Failure: No Hx Family Hypertension: No Hx Family Stroke: No Hx Family Diabetes: Yes Hx Family Seizures: No Hx Family Dementia: No Hx Family AIDS: No Hx Family HIV: No Hx Family COPD: No Hx Family Hepatitis: No Hx Family Psychiatric Problems: No Hx Family Tuberculosis: No ED Physical Exam - Physical Examination General/Constitutional: Awake, Well-developed, well-nourished, Alert, No distress, GCS 15, Non-toxic appearing, Ambulatory Head: Atraumatic Eyes: Lids, conjuctiva normal, PERRL, EOMI Skin: Nl inspection, No rash, No skin lesions, No ecchymosis, Well hydrated, No lymphadenopathy ENMT: External ears, nose nl, TM canals nl, Nasal exam nl, Lips, teeth, gums nl , Oropharynx nl, Tonsils nl Neck: Nontender, Full ROM w/o pain, No JVD, No nuchal rigidity, No bruit, No mass, No stridor Other Neck comments:: supple; no meningeal signs; no cervical tenderness; no bruits Respiratory: Nl effort/Exclusion, Clear to Auscultation, No Wheeze/Rhonchi/Rales Cardio Vascular: RRR, No murmur, gallop, rubs, NL S1 S2, Carotid/Femoral/Distal pulses equal bilaterally GI: No tenderness/rebounding/guarding, No organomegaly, No hernia, Normal BS's, Nondistended, No mass/bruits, No McBurney tenderness, Rectum exam nl Other GI comments:: no pulsatile masses : No CVA tenderness Other comments:: /Pelvic Exam: deferred by pt Extremities: No tenderness or effusion, Full ROM, normal strength in all extremities, No edema, Normal digits & nails Neuro/Psych: Alert/oriented, DTR's symmetric, Normal sensory exam, Normal motor strength, Judgement/insight normal, Mood normal, Normal gait, No focal deficits Other Neuro/Psych comments:: no focal signs Misc: Normal back, No paraspinal tenderness ED Labs/Radiology/EKG Results - Lab Results Results: Laboratory Tests 02/26/18 02/26/18 11:45 11:45 Urine Source RANDOM Urine Color LIGHT YELLOW Urine Clarity CLEAR Urine pH 6.5 Ur Specific [place] 1.010 Urine Protein NEGATIVE Urine Glucose (UA) NEGATIVE Urine Ketones NEGATIVE Urine Blood NEGATIVE Urine Nitrate NEGATIVE Urine Bilirubin NEGATIVE Urine Urobilinogen 0.2 Ur Leukocyte Esterase NEGATIVE Urine RBC NONE SEEN Urine WBC 0-2 Ur Epithelial Cells FEW Urine Bacteria OCCASIONAL Urine Test NEGATIVE Comments:: Reviewed ED Septic Shock - . Is Septic Shock (SBP<90, OR Lactate>4 mmol\L) present?: No - <6hrs of presentation: Vital Signs: Vital Signs - 8 hr 02/26/18 02/26/18 11:47 13:57 Temp 98.7 F 97.8 F HR 96 74 RR 18 16 BP 137/92 129/64 O2 Sat % 98 99 ED Reassessment (Disposition) - Reassessment Reassessment:: pt tolerated po fluids well in ER; pt is asymptomatic upon discharge Reassessment Condition:: Improved - Diagnosis Diagnosis:: Dx: Dysuria; UTI; - Aftercare/Follow up Instructions Aftercare/Follow-Up Instructions:: Counseled pt regarding lab results/diagnosis & need follow up, Refer to Discharge Instructions, Counseled pt & family regarding lab results/diagnosis & need follow up Medication Prescribed:: Rx: Macrobid 100mg po bid x 10 days; Encourage fluids especially citric acid juices - Patient Disposition Discharge/Transfer:: Home Condition at Disposition:: Stable, Improved (RTER prn if existing s/s reoccur and/or get worse and/or any other new s/s occur; ACIs given for all above Dx; Refer to Urologist/Title Searcher ERICK; F/U with PMD in one day or prn; RTER prn if concerned)
== END 2018-02-26 14:05 | disposition home or self-care (01) ==
LOC: ER 11:36
DX: N39.0 Urinary tract infection, site not specified (principal); I10 Essential (primary) hypertension; E78.5 Hyperlipidemia, unspecified; Z90.710 Acquired absence of both cervix and uterus; Z88.0 Allergy status to penicillin; Z88.1 Allergy status to other antibiotic agents; Z88.5 Allergy status to narcotic agent; Z88.6 Allergy status to analgesic agent; Z88.8 Allergy status to other drugs, medicaments and biological substances; Z91.013 Allergy to seafood; Z91.041 Radiographic dye allergy status; Z91.018 Allergy to other foods; Z91.012 Allergy to eggs; Z91.010 Allergy to peanuts
CPT/HCPCS: 81001-TC; 81025-TC; Z7502

== ENCOUNTER 2018-02-27 17:48 | Emergency (ER) | payer MEDICARE, MEDICAID ==
--- NOTE | 2018-02-27 18:23 | ED Physician Chart ---
ED Chief Complaint/HPI - Patient Information Date Seen:: 02/27/18 Time Seen:: 18:10 Chief Complaint:: dysuria History of Present Illness:: For last 4-5 days patient has had nausea, low back pain, dysuria, urinary frequency and nocturia multiple times a night. No fever. Patient was seen here yesterday and prescribed Macrobid and states that it is not improving her symptoms. Allergies:: Allergies Allergy/AdvReac Type Severity Reaction Status Date / Time aspirin Allergy Verified 02/27/18 17:57 chicken derived Allergy Verified 02/27/18 17:57 ciprofloxacin [From Cipro] Allergy Verified 02/27/18 17:57 egg Allergy Verified 02/27/18 17:57 ibuprofen Allergy Verified 02/27/18 17:57 peanut Allergy Verified 02/27/18 17:57 Penicillins Allergy Verified 02/27/18 17:57 pork derived (porcine) Allergy Verified 02/27/18 17:57 shellfish derived Allergy Verified 02/27/18 17:57 acetaminophen AdvReac Verified 02/27/18 17:57 [From Darvocet-N] codeine AdvReac Verified 02/27/18 17:57 hydrocodone [From Vicodin] AdvReac Verified 02/27/18 17:57 iodine AdvReac Verified 02/27/18 17:57 meperidine [From Demerol] AdvReac Verified 02/27/18 17:57 morphine AdvReac Verified 02/27/18 17:57 propoxyphene AdvReac Verified 02/27/18 17:57 [From Darvocet-N] Historian:: Patient Review:: Nurse's Note Reviewed ED Review of Systems - Review of Systems General/Constitutional: No fever, No chills Skin: No skin lesions Head: No headache Eyes: No loss of vision ENT: No earache Neck: No neck pain Cardio Vascular: No chest pain, No palpitations Pulmonary: No SOB GI: No nausea, No vomiting, No diarrhea G/U: Dysuria, Frequency, Hematuria, Nocturia Musculoskeletal: No bone or joint pain, Back pain Endocrine: No polyuria, No polydipsia Psychiatric: Other (patient was given Risperdal in the past after which she developed upper extremity tremors and Risperdal was then discontinued) Hematopoietic: No bruising Allergic/Immuno: No urticaria Neurological: No syncope, No focal symptoms ED Past Medical History - Past Medical History Past Medical History: HTN, Asthma/COPD, Other (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; scoliosis; irritable bowel syndrome) Family History: Diabetes Melitus, HTN, Other (mother has osteoporosis) Social History: Non Smoker, No Alcohol Surgical History: Hysterectomy, other (tubal ligation) Psychiatricy History: Schizophrenia Medication: Reviewed Family Medical History - Family Member Father History Unknown: Yes Ethnicity: Non- Living Status: Still Living Hx Family Cancer: No Hx Family Coronary Artery Disease: No Hx Family Congestive Heart Failure: No Hx Family Hypertension: Yes Hx Family Stroke: No Hx Family Diabetes: Yes Hx Family Seizures: No Hx Family Dementia: No Hx Family AIDS: No Hx Family HIV: No Hx Family COPD: No Hx Family Hepatitis: No Hx Family Psychiatric Problems: No Hx Family Tuberculosis: No Mother History Unknown: Yes Ethnicity: Non- Living Status: Still Living Hx Family Cancer: No Hx Family Coronary Artery Disease: No Hx Family Congestive Heart Failure: No Hx Family Hypertension: No Hx Family Stroke: No Hx Family Diabetes: Yes Hx Family Seizures: No Hx Family Dementia: No Hx Family AIDS: No Hx Family HIV: No Hx Family COPD: No Hx Family Hepatitis: No Hx Family Psychiatric Problems: No Hx Family Tuberculosis: No ED Physical Exam - Physical Examination General/Constitutional: Awake, Well-developed, well-nourished, Alert Head: Atraumatic Eyes: Lids, conjuctiva normal Other Eyes comments:: Corneal right eye opaque Skin: Nl inspection, No rash, No skin lesions, No ecchymosis ENMT: External ears, nose nl, Nasal exam nl Other ENMT comments:: Edentulous Neck: No nuchal rigidity Respiratory: Nl effort/Exclusion, Clear to Auscultation Cardio Vascular: RRR, No murmur, gallop, rubs, NL S1 S2 GI: No organomegaly, No hernia, Normal BS's, Nondistended, No mass/bruits Other GI comments:: 1 out of 4 lower abdominal tenderness Extremities: No edema Neuro/Psych: Alert/oriented, No focal deficits Other Neuro/Psych comments:: Tremors both hands ED Labs/Radiology/EKG Results - Lab Results Results: Abnormal Lab Results 02/27/18 18:32 Urine Source [place] Urine Color YELLOW Urine Clarity CLEAR Urine pH 7.0 Ur Specific [place] 1.010 Urine Protein NEGATIVE Urine Glucose (UA) NEGATIVE Urine Ketones NEGATIVE Urine Blood NEGATIVE Urine Nitrate NEGATIVE Urine Bilirubin NEGATIVE Urine Urobilinogen 0.2 Ur Leukocyte Esterase MODERATE H Urine RBC 0-2 Urine WBC 2-5 Ur Epithelial Cells FEW Urine Bacteria FEW ED Septic Shock - . Is Septic Shock (SBP<90, OR Lactate>4 mmol\L) present?: No ED Reassessment (Disposition) - Reassessment Reassessment:: urinalysis does not show urinary tract infection but since symptoms are not improving I will change antibiotic to Keflex 500 mg 4 times a day for 1 week. Reassessment Condition:: Unchanged - Diagnosis Diagnosis:: Urethral syndrome or urinary tract infection - Aftercare/Follow up Instructions Aftercare/Follow-Up Instructions:: Refer to Discharge Instructions - Patient Disposition Discharge/Transfer:: Home Condition at Disposition:: Stable, Unchanged
[2018-02-27 18:41] LABS: URINE BILIRUBIN NEGATIVE (NEGATIVE); URINE BLOOD NEGATIVE (NEGATIVE); URINE GLUCOSE (UA) NEGATIVE (NEGATIVE); URINE KETONE NEGATIVE (NEGATIVE); URINE LEUKOCYTE ESTERASE MODERATE (NEGATIVE); URINE NITRATE NEGATIVE (NEGATIVE); URINE PROTEIN NEGATIVE (NEGATIVE); URINE SOURCE MIDSTREAM; URINE UROBILINOGEN 0.2 E.U./dL (0.2 - 1.0)
[2018-02-27 18:55] LABS: URINE CLARITY CLEAR (CLEAR); URINE COLOR YELLOW
[2018-02-27 18:56] LABS: URINE MICROSCOPIC INDICATED? YES
[2018-02-27 18:57] LABS: URINE BACTERIA FEW /hpf (NONE SEEN); URINE EPITHELIAL CELLS FEW /lpf (FEW); URINE RBC 0-2 /hpf (0-5)
== END 2018-02-27 19:20 | disposition home or self-care (01) ==
LOC: ER 17:48
DX: N39.0 Urinary tract infection, site not specified (principal); N34.3 Urethral syndrome, unspecified; I10 Essential (primary) hypertension; J44.9 Chronic obstructive pulmonary disease, unspecified; Z90.710 Acquired absence of both cervix and uterus; F20.9 Schizophrenia, unspecified; Z88.0 Allergy status to penicillin; Z88.1 Allergy status to other antibiotic agents; Z88.5 Allergy status to narcotic agent; Z88.6 Allergy status to analgesic agent; Z88.8 Allergy status to other drugs, medicaments and biological substances; Z91.010 Allergy to peanuts; Z91.012 Allergy to eggs; Z91.013 Allergy to seafood; Z91.018 Allergy to other foods
CPT/HCPCS: 81001-TC; Z7502

== ENCOUNTER 2018-03-02 12:00 | Emergency (ER) | payer MEDICARE, MEDICAID ==
[2018-03-02 12:13] LABS: URINE SOURCE CLEAN C
[2018-03-02 12:16] LABS: URINE BILIRUBIN NEGATIVE (NEGATIVE); URINE BLOOD NEGATIVE (NEGATIVE); URINE GLUCOSE (UA) NEGATIVE (NEGATIVE); URINE KETONE NEGATIVE (NEGATIVE); URINE LEUKOCYTE ESTERASE TRACE (NEGATIVE); URINE MICROSCOPIC INDICATED? YES; URINE NITRATE NEGATIVE (NEGATIVE); URINE PH 7.5 (4.6 - 8.0); URINE PROTEIN NEGATIVE (NEGATIVE); URINE UROBILINOGEN 0.2 E.U./dL (0.2 - 1.0)
[2018-03-02 12:21] LABS: URINE CLARITY STRAW (CLEAR); URINE COLOR PALE YELLOW
[2018-03-02 12:24] LABS: URINE BACTERIA 1+ /hpf (NONE SEEN); URINE EPITHELIAL CELLS MANY /lpf (FEW); URINE RBC NONE SEEN /hpf (0-5)
--- NOTE | 2018-03-02 12:46 | ED Physician Chart ---
ED Chief Complaint/HPI - Patient Information Date Seen:: 03/02/18 Time Seen:: 12:19 Chief Complaint:: Dysuria, no STD concerns History of Present Illness:: Dysuria, no STD concerns No other complaints. No back pain. No N, V,D, C. Allergies:: Allergies Allergy/AdvReac Type Severity Reaction Status Date / Time aspirin Allergy Verified 02/27/18 17:57 cephalexin [From Keflex] Allergy Verified 03/02/18 12:14 chicken derived Allergy Verified 02/27/18 17:57 ciprofloxacin [From Cipro] Allergy Verified 02/27/18 17:57 egg Allergy Verified 02/27/18 17:57 ibuprofen Allergy Verified 02/27/18 17:57 lubiprostone [From Amitiza] Allergy Verified 03/02/18 12:16 nitrofurantoin Allergy Verified 03/02/18 12:14 [From Macrobid] peanut Allergy Verified 02/27/18 17:57 Penicillins Allergy Verified 02/27/18 17:57 pork derived (porcine) Allergy Verified 02/27/18 17:57 sesame oil Allergy Verified 03/02/18 12:16 sesame seed Allergy Verified 03/02/18 12:15 shellfish derived Allergy Verified 02/27/18 17:57 Sulfa (Sulfonamide Allergy Verified 03/02/18 12:17 Antibiotics) acetaminophen AdvReac Verified 02/27/18 17:57 [From Darvocet-N] atorvastatin [From Lipitor] AdvReac Verified 03/02/18 12:27 codeine AdvReac Verified 02/27/18 17:57 erythromycin base AdvReac Verified 03/02/18 12:26 hydrocodone [From Vicodin] AdvReac Verified 02/27/18 17:57 iodine AdvReac Verified 02/27/18 17:57 meperidine [From Demerol] AdvReac Verified 02/27/18 17:57 morphine AdvReac Verified 02/27/18 17:57 propoxyphene AdvReac Verified 02/27/18 17:57 [From Darvocet-N] macrobid Allergy Uncoded 03/02/18 12:14 Vitals:: Vital Signs - 8 hr 03/02/18 12:19 Temp 98.2 F HR 90 RR 15 BP 147/86 O2 Sat % 97 Historian:: Patient Review:: Nurse's Note Reviewed ED Review of Systems - Review of Systems General/Constitutional: No fever, No chills, No weight loss, No weakness, No diaphoresis, No edema, No loss of appetite Skin: No skin lesions, No rash, No bruising Head: No headache, No light-headedness Eyes: No loss of vision, No pain, No diplopia ENT: No earache, No nasal drainage, No sore throat, No tinnitus Neck: No neck pain, No swelling, No thyromegaly, No stiffness, No mass noted Cardio Vascular: No chest pain, No palpitations, No PND, No orthopnea, No edema Pulmonary: No SOB, No cough, No sputum, No wheezing GI: No nausea, No vomiting, No diarrhea, No pain, No melena, No hematochezia, No constipation, No hematemesis G/U: Dysuria, No frequency, No hematuria, No nacturia Front Office Associate: No vaginal discharge, No abnormal vaginal bleed, No contraction Musculoskeletal: No bone or joint pain, No back pain, No muscle pain Endocrine: No polyuria, No polydipsia Psychiatric: No prior psych history, No depression, No anxiety, No suicidal ideation Hematopoietic: No bruising, No lymphadenopathy Allergic/Immuno: No urticaria, No angioedema Neurological: No syncope, No focal symptoms, No weakness, No paresthesia, No headache, No seizure, No dizziness, No confusion, No vertigo ED Past Medical History - Past Medical History Obtainable: Yes Past Medical History: Other (anxiety) Family Medical History - Family Member Father History Unknown: Yes Ethnicity: Non- Living Status: Still Living Hx Family Cancer: No Hx Family Coronary Artery Disease: No Hx Family Congestive Heart Failure: No Hx Family Hypertension: Yes Hx Family Stroke: No Hx Family Diabetes: Yes Hx Family Seizures: No Hx Family Dementia: No Hx Family AIDS: No Hx Family HIV: No Hx Family COPD: No Hx Family Hepatitis: No Hx Family Psychiatric Problems: No Hx Family Tuberculosis: No Mother History Unknown: Yes Ethnicity: Non- Living Status: Still Living Hx Family Cancer: No Hx Family Coronary Artery Disease: No Hx Family Congestive Heart Failure: No Hx Family Hypertension: No Hx Family Stroke: No Hx Family Diabetes: Yes Hx Family Seizures: No Hx Family Dementia: No Hx Family AIDS: No Hx Family HIV: No Hx Family COPD: No Hx Family Hepatitis: No Hx Family Psychiatric Problems: No Hx Family Tuberculosis: No ED Physical Exam - Physical Examination General/Constitutional: Awake, Well-developed, well-nourished, Alert, No distress, GCS 15, Non-toxic appearing, Ambulatory Head: Atraumatic Other Eyes comments:: R eye opaque Skin: Nl inspection, No rash, No skin lesions, No ecchymosis, Well hydrated, No lymphadenopathy ENMT: External ears, nose nl Neck: Nontender, No nuchal rigidity, No stridor Respiratory: Nl effort/Exclusion, Clear to Auscultation, No Wheeze/Rhonchi/Rales Cardio Vascular: RRR, No murmur, gallop, rubs, NL S1 S2 GI: No tenderness/rebounding/guarding, No organomegaly, No hernia, Normal BS's, Nondistended, No mass/bruits, No McBurney tenderness : No CVA tenderness Extremities: No tenderness or effusion, Full ROM, normal strength in all extremities, No edema, Normal digits & nails Neuro/Psych: Alert/oriented, Normal sensory exam, Normal motor strength, Judgement/insight normal, Mood normal, Normal gait, No focal deficits Misc: Normal back, No paraspinal tenderness ED Labs/Radiology/EKG Results - Lab Results Results: Laboratory Tests 03/02/18 12:10 Urine Source CLEAN C Urine Color PALE YELLOW Urine Clarity STRAW Urine pH 7.5 Ur Specific [place] 1.010 Urine Protein NEGATIVE Urine Glucose (UA) NEGATIVE Urine Ketones NEGATIVE Urine Blood NEGATIVE Urine Nitrate NEGATIVE Urine Bilirubin NEGATIVE Urine Urobilinogen 0.2 Ur Leukocyte Esterase TRACE H Urine RBC NONE SEEN Urine WBC 2-5 Ur Epithelial Cells MANY Urine Bacteria 1+ H ED Assessment - Assessment General Assessment: patient denies performing any washing of her private areas. Questions asked due to possible fragranced soap exposure to urethra. She uses Dove, but doesn't use the dove near her urethra, vagina or rectal areas. Urine results reviewed with patient. Probable contamination due to many epithelials. ALSO, PATIENT HAS MULTIPLE ANTIBIOTIC ALLERGIES (BASICALLY TO EVERYTHING). THEREFORE, I RECOMMENDED HER CALLING ME TOMORROW EVENING WHEN I START SHIFT AT 7 P.M. SO THAT I CAN REVIEW THE URINE CULTURE WITH HER ED Septic Shock - . Is Septic Shock (SBP<90, OR Lactate>4 mmol\L) present?: No - <6hrs of presentation: Vital Signs: Vital Signs - 8 hr 03/02/ 12:19 Temp 98.2 F HR 90 RR 15 BP 147/86 O2 Sat % 97 ED Reassessment (Disposition) - Reassessment Reassessment Condition:: Unchanged - Aftercare/Follow up Instructions Aftercare/Follow-Up Instructions:: Refer to Discharge Instructions Notes:: patient to call me back tomorrow in the ER so that I can review results with her and we can then decide if antibiotics are even indicated. - Patient Disposition Discharge/Transfer:: Home Condition at Disposition:: Stable, Unchanged
== END 2018-03-02 12:50 | disposition home or self-care (01) ==
LOC: ER 12:00
DX: R30.0 Dysuria (principal); Z88.0 Allergy status to penicillin; Z88.1 Allergy status to other antibiotic agents; Z88.2 Allergy status to sulfonamides; Z88.5 Allergy status to narcotic agent; Z88.6 Allergy status to analgesic agent; Z88.8 Allergy status to other drugs, medicaments and biological substances; Z91.010 Allergy to peanuts; Z91.012 Allergy to eggs; Z91.013 Allergy to seafood; Z91.018 Allergy to other foods; Z91.048 Other nonmedicinal substance allergy status
CPT/HCPCS: 81001-TC; 87086-90; Z7502

== ENCOUNTER 2018-07-31 15:47 | Emergency (ER) | payer MEDICARE, MEDICAID ==
[2018-07-31] MEDS: Albuterol/Ipratropium Neb 3 ML AERS HHN ONE (16:26)
[2018-07-31] MEDS ORDERED: Albuterol/Ipratropium Neb 3 ML AERS HHN ONE (16:27)
--- NOTE | 2018-07-31 16:30 | ED Physician Chart ---
ED Chief Complaint/HPI - Patient Information Date Seen:: 07/31/18 Time Seen:: 16:20 Chief Complaint:: chest pain History of Present Illness:: Patient has had intermittent dull substernal chest pain for last 1 1/2 weeks. She's had shortness of breath and nausea. No recent cough. Pain may or may not have been mildly pleuritic. Allergies:: Allergies Allergy/AdvReac Type Severity Reaction Status Date / Time aspirin Allergy Verified 07/31/18 15:56 cephalexin [From Keflex] Allergy Verified 07/31/18 15:56 chicken derived Allergy Verified 07/31/18 15:56 ciprofloxacin [From Cipro] Allergy Verified 07/31/18 15:56 egg Allergy Verified 07/31/18 15:56 ibuprofen Allergy Verified 07/31/18 15:56 lubiprostone [From Amitiza] Allergy Verified 07/31/18 15:56 nitrofurantoin Allergy Verified 07/31/18 15:56 [From Macrobid] peanut Allergy Verified 07/31/18 15:56 Penicillins Allergy Verified 07/31/18 15:56 pork derived (porcine) Allergy Verified 07/31/18 15:56 sesame oil Allergy Verified 07/31/18 15:56 sesame seed Allergy Verified 07/31/18 15:56 shellfish derived Allergy Verified 07/31/18 15:56 Sulfa (Sulfonamide Allergy Verified 07/31/18 15:56 Antibiotics) acetaminophen AdvReac Verified 07/31/18 15:56 [From Darvocet-N] atorvastatin [From Lipitor] AdvReac Verified 07/31/18 15:56 codeine AdvReac Verified 07/31/18 15:56 erythromycin base AdvReac Verified 07/31/18 15:56 hydrocodone [From Vicodin] AdvReac Verified 07/31/18 15:56 iodine AdvReac Verified 07/31/18 15:56 meperidine [From Demerol] AdvReac Verified 07/31/18 15:56 morphine AdvReac Verified 07/31/18 15:56 propoxyphene AdvReac Verified 07/31/18 15:56 [From Darvocet-N] macrobid Allergy Uncoded 03/02/18 12:14 Vitals:: Vital Signs - 8 hr 07/31/18 15:56 Temp 98.3 F HR 113 RR 18 BP 157/107 O2 Sat % 96 ED Review of Systems - Review of Systems General/Constitutional: No fever, No chills, No weight loss, No weakness, No diaphoresis, No edema, No loss of appetite Skin: No skin lesions, No rash, No bruising Head: No headache, No light-headedness Eyes: No loss of vision, No pain, No diplopia ENT: No earache, No nasal drainage, No sore throat, No tinnitus Neck: No neck pain, No swelling, No thyromegaly, No stiffness, No mass noted Cardio Vascular: Chest pain, No palpitations, No PND, No orthopnea, No edema Pulmonary: SOB, No cough, No sputum, No wheezing GI: Nausea, No vomiting, No diarrhea, No pain, No melena, No hematochezia, No constipation, No hematemesis G/U: No dysuria, No frequency, No hematuria Musculoskeletal: No bone or joint pain, No back pain, No muscle pain Endocrine: No polyuria, No polydipsia Psychiatric: No prior psych history, No depression, No anxiety, No suicidal ideation Hematopoietic: No bruising, No lymphadenopathy Allergic/Immuno: No urticaria, No angioedema Neurological: No syncope, No focal symptoms, No weakness, No paresthesia, No headache, No seizure, No dizziness, No confusion, No vertigo ED Past Medical History - Past Medical History Past Medical History: HTN, Asthma/COPD, Thyroid disorder, Other (blind right eye ; hypothyroidism; scoliosis; bowel syndrome; gastritis; asthma) Family History: Diabetes Melitus, HTN Social History: Non Smoker, No Alcohol Surgical History: Hysterectomy, other (tubal ligation) Psychiatricy History: None Medication: Reviewed Family Medical History - Family Member Father History Unknown: Yes Ethnicity: Non- Living Status: Still Living Hx Family Cancer: No Hx Family Coronary Artery Disease: No Hx Family Congestive Heart Failure: No Hx Family Hypertension: Yes Hx Family Stroke: No Hx Family Diabetes: Yes Hx Family Seizures: No Hx Family Dementia: No Hx Family AIDS: No Hx Family HIV: No Hx Family COPD: No Hx Family Hepatitis: No Hx Family Psychiatric Problems: No Hx Family Tuberculosis: No Mother History Unknown: Yes Ethnicity: Non- Living Status: Still Living Hx Family Cancer: No Hx Family Coronary Artery Disease: No Hx Family Congestive Heart Failure: No Hx Family Hypertension: No Hx Family Stroke: No Hx Family Diabetes: Yes Hx Family Seizures: No Hx Family Dementia: No Hx Family AIDS: No Hx Family HIV: No Hx Family COPD: No Hx Family Hepatitis: No Hx Family Psychiatric Problems: No Hx Family Tuberculosis: No ED Physical Exam - Physical Examination General/Constitutional: Awake, Well-developed, well-nourished, Alert, No distress, GCS 15, Non-toxic appearing, Ambulatory Head: Atraumatic Eyes: Lids, conjuctiva normal, PERRL, EOMI Skin: Nl inspection, No rash, No skin lesions, No ecchymosis, Well hydrated, No lymphadenopathy ENMT: External ears, nose nl, Nasal exam nl Other ENMT comments:: Edentulous Neck: Nontender, Full ROM w/o pain, No JVD, No nuchal rigidity, No bruit, No mass, No stridor Respiratory: Nl effort/Exclusion, Clear to Auscultation, No Wheeze/Rhonchi/Rales Cardio Vascular: RRR, No murmur, gallop, rubs, NL S1 S2 GI: No tenderness/rebounding/guarding, No organomegaly, No hernia, Normal BS's, Nondistended, No mass/bruits, No McBurney tenderness : No CVA tenderness Extremities: No tenderness or effusion, Full ROM, normal strength in all extremities, No edema, Normal digits & nails Neuro/Psych: Alert/oriented, DTR's symmetric, Normal sensory exam, Normal motor strength, Judgement/insight normal, Mood normal, Normal gait, No focal deficits Misc: Normal back, No paraspinal tenderness ED Labs/Radiology/EKG Results - EKG Interpretations Rate & Rhythm: normal sinus rhythm with a rate of 85 Ivel: normal Comments:: Nonspecific T-wave changes in V1 and V2 ED Septic Shock - . Is Septic Shock (SBP<90, OR Lactate>4 mmol\L) present?: No - <6hrs of presentation: Vital Signs: Vital Signs - 8 hr 07/31/18 15:56 Temp 98.3 F HR 113 RR 18 BP 157/107 O2 Sat % 96 ED Reassessment (Disposition) - Reassessment Reassessment:: Patient had slight chest pain only after the breathing treatment. Patient's chest pain is most likely related to her asthma not to coronary artery disease. Reassessment Condition:: Improved - Diagnosis Diagnosis:: Exacerbation asthma - Aftercare/Follow up Instructions Aftercare/Follow-Up Instructions:: Refer to Discharge Instructions Medication Prescribed:: Albuterol metered-dose inhaler to use 2 puffs every 4 hours as necessary for shortness of breath - Patient Disposition Discharge/Transfer:: Home Condition at Disposition:: Stable, Improved
== END 2018-07-31 17:00 | disposition home or self-care (01) ==
LOC: ER 15:47
DX: J45.901 Unspecified asthma with (acute) exacerbation (principal); I10 Essential (primary) hypertension; E07.9 Disorder of thyroid, unspecified; Z88.0 Allergy status to penicillin; Z88.1 Allergy status to other antibiotic agents; Z88.2 Allergy status to sulfonamides; Z88.8 Allergy status to other drugs, medicaments and biological substances; Z91.013 Allergy to seafood; Z91.010 Allergy to peanuts; Z91.012 Allergy to eggs; Z91.048 Other nonmedicinal substance allergy status; Z90.710 Acquired absence of both cervix and uterus
CPT/HCPCS: 93005; 94640; Z7502

== ENCOUNTER 2018-08-05 14:52 | Observation (INO) | payer MEDICARE, MEDICAID ==
--- NOTE | 2018-08-05 15:40 | ED Physician Chart ---
ED Chief Complaint/HPI - Patient Information Date Seen:: 08/05/18 Time Seen:: 15:30 Chief Complaint:: Chest Pain History of Present Illness:: onset x 3 days of intermittent, exertional pressure Chest Pain; pt denies trauma , H/As, S/T, neck pain, cough, SOB, Abd. Pain, A/N/V/D/C, fever, chills, SIs, or urinary s/s Allergies:: Allergies Allergy/AdvReac Type Severity Reaction Status Date / Time aspirin Allergy Verified 07/31/18 15:56 cephalexin [From Keflex] Allergy Verified 07/31/18 15:56 chicken derived Allergy Verified 07/31/18 15:56 ciprofloxacin [From Cipro] Allergy Verified 07/31/18 15:56 egg Allergy Verified 07/31/18 15:56 ibuprofen Allergy Verified 07/31/18 15:56 lubiprostone [From Amitiza] Allergy Verified 07/31/18 15:56 nitrofurantoin Allergy Verified 07/31/18 15:56 [From Macrobid] peanut Allergy Verified 07/31/18 15:56 Penicillins Allergy Verified 07/31/18 15:56 pork derived (porcine) Allergy Verified 07/31/18 15:56 sesame oil Allergy Verified 07/31/18 15:56 sesame seed Allergy Verified 07/31/18 15:56 shellfish derived Allergy Verified 07/31/18 15:56 Sulfa (Sulfonamide Allergy Verified 07/31/18 15:56 Antibiotics) acetaminophen AdvReac Verified 07/31/18 15:56 [From Darvocet-N] atorvastatin [From Lipitor] AdvReac Verified 07/31/18 15:56 codeine AdvReac Verified 07/31/18 15:56 erythromycin base AdvReac Verified 07/31/18 15:56 hydrocodone [From Vicodin] AdvReac Verified 07/31/18 15:56 iodine AdvReac Verified 07/31/18 15:56 meperidine [From Demerol] AdvReac Verified 07/31/18 15:56 morphine AdvReac Verified 07/31/18 15:56 propoxyphene AdvReac Verified 07/31/18 15:56 [From Darvocet-N] macrobid Allergy Uncoded 03/02/18 12:14 Vitals:: Vital Signs - 8 hr 08/05/ 15:28 Temp 98.3 F HR 79 RR 16 BP 145/89 O2 Sat % 95 Historian:: Patient Review:: Nurse's Note Reviewed, Old Chart Reviewed ED Review of Systems - Review of Systems General/Constitutional: No fever, No chills, No weight loss, No weakness, No diaphoresis, No edema, No loss of appetite Skin: No skin lesions, No rash, No bruising Head: No headache, No light-headedness Eyes: No loss of vision, No pain, No diplopia ENT: No earache, No nasal drainage, No sore throat, No tinnitus Neck: No neck pain, No swelling, No thyromegaly, No stiffness, No mass noted Cardio Vascular: Chest pain, No palpitations, No PND, No orthopnea, No edema Pulmonary: SOB, No cough, No sputum, No wheezing GI: No nausea, No vomiting, No diarrhea, No pain, No melena, No hematochezia, No constipation, No hematemesis G/U: No dysuria, No frequency, No hematuria, No nacturia Cathode Maker: No vaginal discharge, No abnormal vaginal bleed, No contraction Musculoskeletal: No bone or joint pain, No back pain, No muscle pain Endocrine: No polyuria, No polydipsia Psychiatric: Prior psych history, No depression, Anxiety, No suicidal ideation, No homicidal ideation, No auditory hallucination, No visual hallucination Hematopoietic: No bruising, No lymphadenopathy Allergic/Immuno: No urticaria, No angioedema Neurological: No syncope, No focal symptoms, No weakness, No paresthesia, No headache, Seizure, Dizziness, No confusion, Vertigo ED Past Medical History - Past Medical History Obtainable: Yes Past Medical History: HTN, Asthma/COPD, Dyslipidemia, Seizures Family History: HTN Social History: Non Smoker, No Alcohol, No Drug Use, Single Surgical History: None Psychiatricy History: Other (Anxiety Disorder) Medication: Reviewed Family Medical History - Family Member Father History Unknown: Yes Ethnicity: Non- Living Status: Still Living Hx Family Cancer: No Hx Family Coronary Artery Disease: No Hx Family Congestive Heart Failure: No Hx Family Hypertension: Yes Hx Family Stroke: No Hx Family Diabetes: Yes Hx Family Seizures: No Hx Family Dementia: No Hx Family AIDS: No Hx Family HIV: No Hx Family COPD: No Hx Family Hepatitis: No Hx Family Psychiatric Problems: No Hx Family Tuberculosis: No Mother History Unknown: Yes Ethnicity: Non- Living Status: Still Living Hx Family Cancer: No Hx Family Coronary Artery Disease: No Hx Family Congestive Heart Failure: No Hx Family Hypertension: No Hx Family Stroke: No Hx Family Diabetes: Yes Hx Family Seizures: No Hx Family Dementia: No Hx Family AIDS: No Hx Family HIV: No Hx Family COPD: No Hx Family Hepatitis: No Hx Family Psychiatric Problems: No Hx Family Tuberculosis: No ED Physical Exam - Physical Examination General/Constitutional: Awake, Well-developed, well-nourished, Alert, No distress, GCS 15, Non-toxic appearing, Ambulatory Head: Atraumatic Eyes: Lids, conjuctiva normal, PERRL, EOMI Skin: Nl inspection, No rash, No skin lesions, No ecchymosis, Well hydrated, No lymphadenopathy ENMT: External ears, nose nl, TM canals nl, Nasal exam nl, Lips, teeth, gums nl , Oropharynx nl, Tonsils nl Neck: Nontender, Full ROM w/o pain, No JVD, No nuchal rigidity, No bruit, No mass, No stridor Other Neck comments:: supple; no meningeal signs Respiratory: Nl effort/Exclusion, Clear to Auscultation, No Wheeze/Rhonchi/Rales Cardio Vascular: RRR, No murmur, gallop, rubs, NL S1 S2, Carotid/Femoral/Distal pulses equal bilaterally GI: No tenderness/rebounding/guarding, No organomegaly, No hernia, Normal BS's, Nondistended, No mass/bruits, No McBurney tenderness, Rectum exam nl Other GI comments:: no pulsatile masses : No CVA tenderness Extremities: No tenderness or effusion, Full ROM, normal strength in all extremities, No edema, Normal digits & nails Neuro/Psych: Alert/oriented, DTR's symmetric, Normal sensory exam, Normal motor strength, Judgement/insight normal, Mood normal, Normal gait, No focal deficits Misc: Normal back, No paraspinal tenderness ED Labs/Radiology/EKG Results - Lab Results Comments:: Reviewed - Radiology Results Comments:: CXR: NAD - EKG Interpretations EKG Time:: 15:25 Rate & Rhythm: 74; NSR Comments:: non-specific st-t changes ED Septic Shock - . Is Septic Shock (SBP<90, OR Lactate>4 mmol\L) present?: No - <6hrs of presentation: Vital Signs: Vital Signs - 8 hr 08/05/18 15:28 Temp 98.3 F HR 79 RR 16 BP 145/89 O2 Sat % 95 ED Reassessment (Disposition) - Reassessment Reassessment Condition:: Improved - Diagnosis Diagnosis:: Chest Pain; Unstable Angina; Angina Pectoris; Hyperlipidemia; Hypertension - Aftercare/Follow up Instructions Aftercare/Follow-Up Instructions:: Counseled pt regarding lab results/diagnosis & need follow up, Counseled pt & family regarding lab results/diagnosis & need follow up - Patient Disposition Discharge/Transfer:: Acute Care w/in this hosp Accepting Physician:: Dr. Reyes Time Called:: 1700 Time Responded:: 17:00 Admitted to:: Telemetry Spoke to:: Dr. Reyes Admitting Medical Physician:: Dr. Reyes Condition at Disposition:: Stable, Improved
[2018-08-05 15:48] LABS: % EOSINOPHILS 0.6 % (0.0-5.0); % LYMPHOCYTES 28.9 % (20.0-50.0); % MONOCYTES 6.5 % (2.0-10.0); HEMATOCRIT 38.6 % (41.0-60); HEMOGLOBIN 12.8 gm/dL (12-16); LYMPHOCYTE ABSOLUTE 1.4 Th/cmm (1.5-3.0); MEAN CELL VOLUME 92.7 fl (81-100); MEAN CORPUSCULAR HEMOGLOBIN 30.8 pg (27.0-31.0); MEAN CORPUSCULAR HGB CONC 33.2 pg (28.0-36.0); MEAN PLATELET VOLUME 7.7 fl; MONOCYTE ABSOLUTE 0.3 Th/cmm (0.3-1.0); NEUTROPHILE ABSOLUTE 3.2 Th/cmm (1.8-8.0); PLATELET COUNT 238 Th/cmm (150-400); RED BLOOD COUNT 4.16 Mil/cmm (3.80-5.10); WHITE BLOOD COUNT 4.9 Th/cmm (4.8-10.8)
[2018-08-05 16:00] LABS: INR 0.97 (0.5-1.4); PROTHROMBIN TIME (TEST) 10.1 SECONDS (9.5-11.5)
[2018-08-05 16:03] LABS: ALB/GLOB RATIO 1.4 (1.0-1.8); ALBUMIN 4.3 gm/dL (3.7-5.3); ALKALINE PHOSPHATASE 38 U/L (34-104); ANION GAP 11.3 (7.0-16.0); BILIRUBIN,TOTAL 0.3 mg/dL (0.3-1.0); BUN - UREA NITROGEN 7 mg/dL (7-25); CALCIUM SERUM 9.6 mg/dL (8.6-10.3); CARBON DIOXIDE 31.5 mEq/L (21.0-31.0); CHLORIDE 101 mEq/L (98-107); CHOLESTEROL 226 mg/dL (<200); CREATININE - SERUM 0.7 mg/dL (0.6-1.2); CREATININE KINASE 83 U/L (30-223); GFR AFRICAN-AMERICAN > 60.0 ml/min (>90); GFR NON AFRICAN-AMERICAN > 60.0 ml/min; GLUCOSE 123 mg/dL (70-105); HDL -HIGH DENSITY LIPOPROTEIN 61 mg/dL (23-92); POTASSIUM SERUM 3.8 mEq/L (3.5-5.1); SGOT 22 U/L (13-39); SGPT/ALT 9 U/L (7-52); SODIUM SERUM 140 mEq/L (136-145); TOTAL PROTEIN,SERUM 7.3 gm/dL (6.0-8.3); TRIGLYCERIDES 72 mg/dL (<150)
[2018-08-05 16:05] LABS: DDIMER QUANT < 100 ng/mL (100-400)
[2018-08-05 16:50] LABS: URINE SOURCE CLEAN C
[2018-08-05 16:54] LABS: URINE BILIRUBIN NEGATIVE (NEGATIVE); URINE BLOOD NEGATIVE (NEGATIVE); URINE CLARITY CLEAR (CLEAR); URINE COLOR YELLOW; URINE GLUCOSE (UA) NEGATIVE (NEGATIVE); URINE KETONE NEGATIVE (NEGATIVE); URINE LEUKOCYTE ESTERASE NEGATIVE (NEGATIVE); URINE MICROSCOPIC INDICATED? YES; URINE NITRATE NEGATIVE (NEGATIVE); URINE PROTEIN NEGATIVE (NEGATIVE); URINE UROBILINOGEN 0.2 E.U./dL (0.2 - 1.0)
[2018-08-05 16:57] LABS: URINE BACTERIA FEW /hpf (NONE SEEN); URINE EPITHELIAL CELLS FEW /lpf (FEW); URINE RBC 0-2 /hpf (0-5)
[2018-08-05 18:32] VITALS: BP 169/93
[2018-08-05] MEDS ORDERED: Albuterol Nebulizer 2.5mg/3mL HHN PRN ×2 (19:22→19:24)
[2018-08-05] MEDS ORDERED: Ipratropium Neb 0.5 mg/2.5 mL UD HHN PRN (19:24)
[2018-08-05] MEDS ORDERED: guaiFENesin 200 MG/10 ML UDC PO PRN (19:24)
[2018-08-05] MEDS ORDERED: Morphine Sulfate 2 mg/mL 1mL Syr IVP PRN (19:24)
[2018-08-05] MEDS: Heparin Sod 5,000Units/ML 5,000 UNITS/ML VIAL SUBQ SCH (20:30)
[2018-08-05] MEDS ORDERED: METOPROLOL SUCCINATE PO SCH (21:00)
[2018-08-05] MEDS ORDERED: MIRTAZAPINE 30 MG PO SCH (21:00)
--- NOTE | 2018-08-05 22:16 | History & Physical ---
ADMIT DATE: 08/05/2018 CHIEF COMPLAINT: Chest pain. HISTORY OF PRESENT ILLNESS: This is a 48-year-old female with history of asthma, COPD, high cholesterol, hypertension, seizure, and psych disorder, admitted from her doctor's office secondary to a blood pressure in the 200 range. The patient also complaining of chest pain. The patient admitted for further management. PAST MEDICAL HISTORY: As mentioned in history of present illness. PAST SURGICAL HISTORY: Status post tubal ligation and hysterectomy. ALLERGIES: THE PATIENT HAS MULTIPLE ALLERGIES, MACROBID, DARVOCET, MORPHINE, DEMEROL, IODINE, HYDROCODONE FROM [place], ATORVASTATIN, CODEINE, SULFA, PENICILLIN, NITROFURANTOIN, MOTRIN, CIPRO, KEFLEX, ASPIRIN. FAMILY HISTORY: Noncontributory. SOCIAL HISTORY: Denies smoking, drinking, or intravenous drug use. REVIEW OF SYSTEMS: GENERAL: The patient is complaining of not feeling well. HEENT: No blurred vision or pain. LUNGS: The patient diagnosed with asthma and COPD, recent admission. HEART: The patient with hypertension and comes in with elevated blood pressure in the 200 systolic. ABDOMEN: No nausea, vomiting, pain. GENITOURINARY: The patient denies increased dysuria. NEUROLOGIC: No headache. The patient has history of seizures. PSYCHIATRIC: As stated above. PHYSICAL EXAMINATION: VITAL SIGNS: Blood pressure 163/93, respirations 19, pulse 74, temperature 97.6. GENERAL: Elderly female, appears her stated age. NECK: Supple. No mass. LUNGS: Equal breath sounds, few rhonchi. HEART: Regular rate and rhythm without appreciable murmur. ABDOMEN: Soft, nontender. EXTREMITIES: Positive excoriation. NEUROLOGIC: Limited. LABORATORY DATA: WBC 4.9, hemoglobin 12.8, platelets 238. INR 0.9. Sodium 140, potassium 3.8, BUN 77, creatinine 0.7, blood sugar 123. Troponin negative x 1. Cholesterol 226. UA essentially negative. ASSESSMENT AND PLAN: Atypical chest pain, hypertension out of control, asthma, chronic obstructive pulmonary disease, hypercholesterolemia, psychosis/anxiety disorder, seizure disorder, multiple medication allergies. We will continue the patient on oxygen and bronchodilator treatments. We will continue with rule out SD protocol, refer the patient to Cardiology. We will perform 2D echo. We will place the patient on heparin for prophylaxis. Continue with current care. THE PATIENT IS ALLERGIC TO ASPIRIN. We will adjust the patient's antihypertensive medication. We will admit the patient to telemetry. JOB# [id number]
[2018-08-05] MEDS: NITROGLYCERIN OINT 2% 1 INCH PACKET TP SCH (23:57)
[2018-08-06] MEDS: NITROGLYCERIN OINT 2% 1 INCH PACKET TP SCH ×3 (06:19→17:00)
[2018-08-06 06:46] LABS: ANION GAP 10.5 (7.0-16.0); BUN - UREA NITROGEN 10 mg/dL (7-25); CALCIUM SERUM 9.5 mg/dL (8.6-10.3); CARBON DIOXIDE 32.6 mEq/L (21.0-31.0); CHLORIDE 100 mEq/L (98-107); CREATININE - SERUM 0.7 mg/dL (0.6-1.2); GFR AFRICAN-AMERICAN > 60.0 ml/min (>90); GFR NON AFRICAN-AMERICAN > 60.0 ml/min; GLUCOSE 111 mg/dL (70-105); POTASSIUM SERUM 4.1 mEq/L (3.5-5.1); SODIUM SERUM 139 mEq/L (136-145)
[2018-08-06] MEDS: Levothyroxine 0.025 Mg Tab PO SCH (08:09)
[2018-08-06] MEDS: Heparin Sod 5,000Units/ML 5,000 UNITS/ML VIAL SUBQ SCH ×2 (08:09→21:09)
[2018-08-06] MEDS: Pantoprazole 40 mg EC Tab PO SCH (08:09)
--- NOTE | 2018-08-06 08:37 | Diagnostic Imaging Report ---
CHEST X-RAY: AP view INDICATION: pain COMPARISON: 08/27/2017 FINDINGS: Minimal chronic lung changes are noted. There is no focal consolidation or pleural effusions The heart is normal in size. The osseous structures demonstrate no acute abnormalities. IMPRESSION: No focal consolidation or evidence of sascha CHF.
--- NOTE | 2018-08-06 12:36 | Internal Medicine Prog Note ---
Internal Medicine Subjective - Subjective Patient seen and examined:: with staff, chart reviewed Patient is:: awake, verbal, interactive, in bed Patient Complaints of:: congestion, headache, chest pain, SOB, unable to sleep, itching Per staff patient has:: no adverse event, no episodes of fall Internal Medicine Objective - Results Result Diagrams: 08/05/18 15:38 08/06/18 06:30 Recent Labs: Laboratory Last Values WBC 4.9 Th/cmm (4.8-10.8) 08/05/18 15:38 RBC 4.16 Mil/cmm (3.80-5.10) 08/05/18 15:38 Hgb 12.8 gm/dL (12-16) 08/05/18 15:38 Hct 38.6 % (41.0-60) L 08/05/18 15:38 MCV 92.7 fl (81-100) 08/05/18 15:38 MCH 30.8 pg (27.0-31.0) 08/05/18 15:38 MCHC Differential 33.2 pg (28.0-36.0) 08/05/18 15:38 RDW 12.0 % (11.5-20.0) 08/05/18 15:38 Plt Count 238 Th/cmm (150-400) 08/05/18 15:38 MPV 7.7 fl 08/05/18 15:38 Neutrophils % 64.0 % (40.0-80.0) 08/05/18 15:38 Lymphocytes % 28.9 % (20.0-50.0) 08/05/18 15:38 Monocytes % 6.5 % (2.0-10.0) 08/05/18 15:38 Eosinophils % 0.6 % (0.0-5.0) 08/05/18 15:38 Basophils % 0.0 % (0.0-2.0) 08/05/18 15:38 PT 10.1 SECONDS (9.5-11.5) 08/05/18 15:38 INR 0.97 (0.5-1.4) 08/05/18 15:38 D-Dimer < 100 ng/mL (100-400) L 08/05/18 15:38 Sodium 139 mEq/L (136-145) 08/06/18 06:30 Potassium 4.1 mEq/L (3.5-5.1) 08/06/18 06:30 Chloride 100 mEq/L (98-107) 08/06/18 06:30 Carbon Dioxide 32.6 mEq/L (21.0-31.0) H 08/06/18 06:30 Anion Gap 10.5 (7.0-16.0) 08/06/18 06:30 BUN 10 mg/dL (7-25) 08/06/18 06:30 Creatinine 0.7 mg/dL (0.6-1.2) 08/06/18 06:30 Est GFR ( Amer) > 60.0 ml/min (>90) 08/06/18 06:30 Est GFR (Non-Af Amer) > 60.0 ml/min 08/06/18 06:30 BUN/Creatinine Ratio 14.3 08/06/18 06:30 Glucose 111 mg/dL (70-105) H 08/06/18 06:30 Calcium 9.5 mg/dL (8.6-10.3) 08/06/18 06:30 Total Bilirubin 0.3 mg/dL (0.3-1.0) 08/05/18 15:38 AST 22 U/L (13-39) 08/05/18 15:38 ALT 9 U/L (7-52) 08/05/18 15:38 Alkaline Phosphatase 38 U/L (34-104) 08/05/18 15:38 Creatine Kinase 83 U/L (30-223) 08/05/18 15:38 Troponin I < 0.01 ng/mL (0.01-0.05) L 08/06/18 06:30 B-Natriuretic Peptide 16.4 pg/mL (5.0-100.0) 08/05/18 15:38 Total Protein 7.3 gm/dL (6.0-8.3) 08/05/18 15:38 Albumin 4.3 gm/dL (3.7-5.3) 08/05/18 15:38 Globulin 3.0 gm/dL 08/05/18 15:38 Albumin/Globulin Ratio 1.4 (1.0-1.8) 08/05/18 15:38 Triglycerides 72 mg/dL (<150) 08/05/18 15:38 Cholesterol 226 mg/dL (<200) H 08/05/18 15:38 LDL Cholesterol Direct 137 mg/dL (75-193) 08/05/18 15:38 HDL Cholesterol 61 mg/dL (23-92) 08/05/18 15:38 TSH 2.05 uIU/ml (0.34-5.60) 08/06/18 06:30 Serum , Qual NEGATIVE (NEGATIVE) 08/05/18 15:38 Urine Source CLEAN C 08/05/18 15:30 Urine Color YELLOW 08/05/18 15:30 Urine Clarity CLEAR (CLEAR) 08/05/18 15:30 Urine pH 8.0 (4.6 - 8.0) 08/05/18 15:30 Ur Specific [place] 1.020 (1.005-1.030) 08/05/18 15:30 Urine Protein NEGATIVE mg/dL (NEGATIVE) 08/05/18 15:30 Urine Glucose (UA) NEGATIVE mg/dL (NEGATIVE) 08/05/18 15:30 Urine Ketones NEGATIVE mg/dL (NEGATIVE) 08/05/18 15:30 Urine Blood NEGATIVE (NEGATIVE) 08/05/18 15:30 Urine Nitrate NEGATIVE (NEGATIVE) 08/05/18 15:30 Urine Bilirubin NEGATIVE (NEGATIVE) 08/05/18 15:30 Urine Urobilinogen 0.2 E.U./dL (0.2 - 1.0) 08/05/18 15:30 Ur Leukocyte Esterase NEGATIVE (NEGATIVE) 08/05/18 15:30 Urine RBC 0-2 /hpf (0-5) 08/05/18 15:30 Urine WBC 2-5 /hpf (0-5) 08/05/18 15:30 Ur Epithelial Cells FEW /lpf (FEW) 08/05/18 15:30 Urine Bacteria FEW /hpf (NONE SEEN) 08/05/18 15:30 Urine Mucus FEW /lpf (FEW) 08/05/18 15:30 - Physical Exam Vitals and I&O: Vital Signs Temp 97.9 F 08/06/18 12:00 Pulse 66 08/06/18 12:00 Resp 18 08/06/18 12:00 BP 161/88 08/06/18 12:00 Pulse Ox 100 08/06/18 12:00 Intake & Output 08/05/18 08/06/18 08/06/18 18:59 06:59 18:59 Intake Total 300 Balance 300 Weight (lbs) 55.792 kg 57.833 kg Intake: Oral 300 Other: # Voids 4 Stool Characteristics Formed [facility] Active Medications: Current Medications Acetaminophen (Tylenol) 650 mg PO Q4H PRN PRN Reason: Pain Or Fever above 101 Stop: 10/04/18 19:23 Albuterol Sulfate (Albuterol 2.5mg/3ml Neb Ud) 2.5 mg HHN Q4H PRN PRN Reason: Shortness of Breath Albuterol Sulfate (Albuterol 2.5mg/3ml Neb Ud) 2.5 mg HHN Q2HRT PRN PRN Reason: Shortness of Breath or Wheeze Stop: 10/04/18 19:23 Clonazepam (Klonopin) 0.5 mg PO Q8H PRN; Protocol PRN Reason: Anxiety Stop: 10/04/18 19:21 Last Admin: 08/06/18 03:57 Dose: 0.5 mg Divalproex Sodium (Depakote Er) 500 mg PO HS RENZO; Protocol Stop: 10/04/18 20:59 Last Admin: 08/05/18 20:29 Dose: 500 mg Docusate Sodium (Colace) 250 mg PO BID [facility] Stop: 10/05/18 08:59 Last Admin: 08/06/18 08:09 Dose: 250 mg Guaifenesin (Robitussin) 200 mg PO Q4HR PRN PRN Reason: Cough or Congestion Stop: 10/04/18 19:23 Heparin Sodium (Porcine) (Heparin) 5,000 units SUBQ Q12HR [facility] Stop: 10/04/18 20:59 Last Admin: 08/06/18 08:09 Dose: 5,000 units Hydrochlorothiazide (Hctz) 25 mg PO DAILY [facility] Stop: 10/05/18 12:29 Hydromorphone HCl (Dilaudid) 2 mg PO Q4HR PRN PRN Reason: Chest Pain Stop: 10/04/18 19:28 Ipratropium [place] (Atrovent Neb 0.5mg/2.5ml) 0.5 mg HHN Q2HRT PRN PRN Reason: Shortness of Breath or Wheeze Stop: 10/04/18 19:23 Levothyroxine Sodium (Synthroid) 0.025 mg PO DAILY [facility] Stop: 10/05/18 08:59 Last Admin: 08/06/18 08:09 Dose: 0.025 mg Loratadine (Claritin) 10 mg PO DAILY [facility] Stop: 10/05/18 08:59 Last Admin: 08/06/18 08:09 Dose: 10 mg Losartan Potassium (Cozaar) 50 mg PO BID [facility] Stop: 10/05/18 08:59 Last Admin: 08/06/18 08:09 Dose: 50 mg Metoprolol Succinate (Toprol Xl) 50 mg PO QPM [facility] Stop: 10/04/18 19:26 Last Admin: 08/05/18 20:28 Dose: 50 mg Mirtazapine (Remeron) 30 mg PO HS [facility] Stop: 10/04/18 20:59 Nitroglycerin (Nitrostat) 0.4 mg SL Q5MIN PRN PRN Reason: Chest Pain Stop: 10/04/18 19:23 Nitroglycerin (Nitro-Bid) 1 inch TP Q6HR [facility] Stop: 10/05/18 00:00 Last Admin: 08/06/18 10:59 Dose: 1 inch Ondansetron HCl (Zofran) 4 mg IV Q8H PRN PRN Reason: Nausea / Vomiting Stop: 10/04/18 19:23 Last Admin: 08/06/18 01:45 Dose: 4 mg Pantoprazole Sodium (Protonix) 40 mg PO DAILY [facility] Stop: 10/05/18 08:59 Last Admin: 08/06/18 08:09 Dose: 40 mg Ropinirole HCl (Requip) 0.5 mg PO HS [facility] Stop: 10/04/18 20:59 Last Admin: 08/05/18 20:29 Dose: 0.5 mg General: alert HEENT: NC/AT, PERRLA, EOMI, other (r eye opacification) Neck: Supple, No JVD Lungs: rales Cardiovascular: RRR, Normal S1, Normal S2, without murmur Abdomen: soft, thin, non-distended, positive bowel sound Extremities: excoriation Neurological: no change Internal Medicine Assmt/Plan - Assessment Assessment: ASSESSMENT AND PLAN: Atypical chest pain, hypertension out of control, asthma, chronic obstructive pulmonary disease, hypercholesterolemia, psychosis/anxiety disorder, seizure disorder, multiple medication allergies. - Plan Plan: PLAN: We will continue the patient on oxygen and bronchodilator treatments. We will continue with rule out [place] protocol, refer the patient to Cardiology. We will perform 2D echo. We will place the patient on heparin for prophylaxis. Continue with current care. THE PATIENT IS ALLERGIC TO ASPIRIN. We will adjust the patient's antihypertensive medication. We will admit the patient to telemetry.
--- NOTE | 2018-08-06 14:37 | General Progress Note ---
Subjective - Review of Systems Service Date: 08/06/18 Subjective: Patient has no complaint of chest pain today Objective - Results Result Diagrams: 08/05/18 15:38 08/06/18 06:30 Recent Labs: Laboratory Last Values WBC 4.9 Th/cmm (4.8-10.8) 08/05/18 15:38 RBC 4.16 Mil/cmm (3.80-5.10) 08/05/18 15:38 Hgb 12.8 gm/dL (12-16) 08/05/18 15:38 Hct 38.6 % (41.0-60) L 08/05/18 15:38 MCV 92.7 fl (81-100) 08/05/18 15:38 MCH 30.8 pg (27.0-31.0) 08/05/18 15:38 MCHC Differential 33.2 pg (28.0-36.0) 08/05/18 15:38 RDW 12.0 % (11.5-20.0) 08/05/18 15:38 Plt Count 238 Th/cmm (150-400) 08/05/18 15:38 MPV 7.7 fl 08/05/18 15:38 Neutrophils % 64.0 % (40.0-80.0) 08/05/18 15:38 Lymphocytes % 28.9 % (20.0-50.0) 08/05/18 15:38 Monocytes % 6.5 % (2.0-10.0) 08/05/18 15:38 Eosinophils % 0.6 % (0.0-5.0) 08/05/18 15:38 Basophils % 0.0 % (0.0-2.0) 08/05/18 15:38 PT 10.1 SECONDS (9.5-11.5) 08/05/18 15:38 INR 0.97 (0.5-1.4) 08/05/18 15:38 D-Dimer < 100 ng/mL (100-400) L 08/05/18 15:38 Sodium 139 mEq/L (136-145) 08/06/18 06:30 Potassium 4.1 mEq/L (3.5-5.1) 08/06/18 06:30 Chloride 100 mEq/L (98-107) 08/06/18 06:30 Carbon Dioxide 32.6 mEq/L (21.0-31.0) H 08/06/18 06:30 Anion Gap 10.5 (7.0-16.0) 08/06/18 06:30 BUN 10 mg/dL (7-25) 08/06/18 06:30 Creatinine 0.7 mg/dL (0.6-1.2) 08/06/18 06:30 Est GFR ( Amer) > 60.0 ml/min (>90) 08/06/18 06:30 Est GFR (Non-Af Amer) > 60.0 ml/min 08/06/18 06:30 BUN/Creatinine Ratio 14.3 08/06/18 06:30 Glucose 111 mg/dL (70-105) H 08/06/18 06:30 Calcium 9.5 mg/dL (8.6-10.3) 08/06/18 06:30 Total Bilirubin 0.3 mg/dL (0.3-1.0) 08/05/18 15:38 AST 22 U/L (13-39) 08/05/18 15:38 ALT 9 U/L (7-52) 08/05/18 15:38 Alkaline Phosphatase 38 U/L (34-104) 08/05/18 15:38 Creatine Kinase 83 U/L (30-223) 08/05/18 15:38 Troponin I < 0.01 ng/mL (0.01-0.05) L 08/06/18 06:30 B-Natriuretic Peptide 16.4 pg/mL (5.0-100.0) 08/05/18 15:38 Total Protein 7.3 gm/dL (6.0-8.3) 08/05/18 15:38 Albumin 4.3 gm/dL (3.7-5.3) 08/05/18 15:38 Globulin 3.0 gm/dL 08/05/18 15:38 Albumin/Globulin Ratio 1.4 (1.0-1.8) 08/05/18 15:38 Triglycerides 72 mg/dL (<150) 08/05/18 15:38 Cholesterol 226 mg/dL (<200) H 08/05/18 15:38 LDL Cholesterol Direct 137 mg/dL (75-193) 08/05/18 15:38 HDL Cholesterol 61 mg/dL (23-92) 08/05/18 15:38 TSH 2.05 uIU/ml (0.34-5.60) 08/06/18 06:30 Serum , Qual NEGATIVE (NEGATIVE) 08/05/18 15:38 Urine Source CLEAN C 08/05/18 15:30 Urine Color YELLOW 08/05/18 15:30 Urine Clarity CLEAR (CLEAR) 08/05/18 15:30 Urine pH 8.0 (4.6 - 8.0) 08/05/18 15:30 Ur Specific [place] 1.020 (1.005-1.030) 08/05/18 15:30 Urine Protein NEGATIVE mg/dL (NEGATIVE) 08/05/18 15:30 Urine Glucose (UA) NEGATIVE mg/dL (NEGATIVE) 08/05/18 15:30 Urine Ketones NEGATIVE mg/dL (NEGATIVE) 08/05/18 15:30 Urine Blood NEGATIVE (NEGATIVE) 08/05/18 15:30 Urine Nitrate NEGATIVE (NEGATIVE) 08/05/18 15:30 Urine Bilirubin NEGATIVE (NEGATIVE) 08/05/18 15:30 Urine Urobilinogen 0.2 E.U./dL (0.2 - 1.0) 08/05/18 15:30 Ur Leukocyte Esterase NEGATIVE (NEGATIVE) 08/05/18 15:30 Urine RBC 0-2 /hpf (0-5) 08/05/18 15:30 Urine WBC 2-5 /hpf (0-5) 08/05/18 15:30 Ur Epithelial Cells FEW /lpf (FEW) 08/05/18 15:30 Urine Bacteria FEW /hpf (NONE SEEN) 08/05/18 15:30 Urine Mucus FEW /lpf (FEW) 08/05/18 15:30 - Physical Exam Vitals and I&O: Vital Signs Temp 97.9 F 08/06/18 12:00 Pulse 67 08/06/18 12:54 Resp 16 08/06/18 12:59 BP 152/93 08/06/18 12:54 Pulse Ox 100 08/06/18 12:00 Intake & Output 08/05/18 08/06/18 08/06/18 18:59 06:59 18:59 Intake Total 300 Balance 300 Weight (lbs) 55.792 kg 57.833 kg Intake: Oral 300 Other: # Voids 4 Stool Characteristics Formed Weight Source Bedscale Bedscale Active Medications: Current Medications Acetaminophen (Tylenol) 650 mg PO Q4H PRN PRN Reason: Pain Or Fever above 101 Stop: 10/04/18 19:23 Albuterol Sulfate (Albuterol 2.5mg/3ml Neb Ud) 2.5 mg HHN Q4H PRN PRN Reason: Shortness of Breath Albuterol Sulfate (Albuterol 2.5mg/3ml Neb Ud) 2.5 mg HHN Q2HRT PRN PRN Reason: Shortness of Breath or Wheeze Stop: 10/04/18 19:23 Clonazepam (Klonopin) 0.5 mg PO Q8H PRN; Protocol PRN Reason: Anxiety Stop: 10/04/18 19:21 Last Admin: 08/06/18 03:57 Dose: 0.5 mg Divalproex Sodium (Depakote Er) 500 mg PO HS [facility]; Protocol Stop: 10/04/18 20:59 Last Admin: 08/05/18 20:29 Dose: 500 mg Docusate Sodium (Colace) 250 mg PO BID [facility] Stop: 10/05/18 08:59 Last Admin: 08/06/18 08:09 Dose: 250 mg Guaifenesin (Robitussin) 200 mg PO Q4HR PRN PRN Reason: Cough or Congestion Stop: 10/04/18 19:23 Heparin Sodium (Porcine) (Heparin) 5,000 units SUBQ Q12HR [facility] Stop: 10/04/18 20:59 Last Admin: 08/06/18 08:09 Dose: 5,000 units Hydrochlorothiazide (Hctz) 25 mg PO DAILY [facility] Stop: 10/05/18 12:29 Last Admin: 08/06/18 12:54 Dose: 25 mg Hydromorphone HCl (Dilaudid) 2 mg PO Q4HR PRN PRN Reason: Chest Pain Stop: 10/04/18 19:28 Ipratropium [place] (Atrovent Neb 0.5mg/2.5ml) 0.5 mg HHN Q2HRT PRN PRN Reason: Shortness of Breath or Wheeze Stop: 10/04/18 19:23 Levothyroxine Sodium (Synthroid) 0.025 mg PO DAILY [facility] Stop: 10/05/18 08:59 Last Admin: 08/06/18 08:09 Dose: 0.025 mg Loratadine (Claritin) 10 mg PO DAILY [facility] Stop: 10/05/18 08:59 Last Admin: 08/06/18 08:09 Dose: 10 mg Losartan Potassium (Cozaar) 50 mg PO BID [facility] Stop: 10/05/18 08:59 Last Admin: 08/06/18 08:09 Dose: 50 mg Metoprolol Succinate (Toprol Xl) 50 mg PO QPM [facility] Stop: 10/04/18 19:26 Last Admin: 08/05/18 20:28 Dose: 50 mg Mirtazapine (Remeron) 30 mg PO HS [facility] Stop: 10/04/18 20:59 Nitroglycerin (Nitrostat) 0.4 mg SL Q5MIN PRN PRN Reason: Chest Pain Stop: 10/04/18 19:23 Nitroglycerin (Nitro-Bid) 1 inch TP Q6HR [facility] Stop: 10/05/18 00:00 Last Admin: 08/06/18 10:59 Dose: 1 inch Ondansetron HCl (Zofran) 4 mg IV Q8H PRN PRN Reason: Nausea / Vomiting Stop: 10/04/18 19:23 Last Admin: 08/06/18 01:45 Dose: 4 mg Pantoprazole Sodium (Protonix) 40 mg PO DAILY [facility] Stop: 10/05/18 08:59 Last Admin: 08/06/18 08:09 Dose: 40 mg Ropinirole HCl (Requip) 0.5 mg PO HS [facility] Stop: 10/04/18 20:59 Last Admin: 08/05/18 20:29 Dose: 0.5 mg General: Alert, Oriented x3, No acute distress HEENT: Mucous membr. moist/pink Neck: Supple, JVD, +2 carotid pulse wo bruit (flat) Cardiovascular: Regular rate, Normal S1, Normal S2, Systolic murmurs Lungs: Clear to auscultation, Normal air movement Abdomen: Bowel sounds, Soft, Other (no organomegaly) Extremities: Pulses (normal) Neurological: Normal gait, Strength at 5/5 X4 ext, Cranial nerves 3-12 NL, Reflexes 2+ Assessment/Plan - Assessment Assessment: Chest pain unlikely coronary artery disease Asthma COPD Hyperlipidemia Seizure disorder Psychosis Anxiety Echocardiogram showed ejection fraction 77% with the mild mitral regurgitation mild tricuspid regurgitation moderate pulmonary regurgitation right ventricular systolic pressure 33 mmHg - Plan Plan: Continue present management ambulate the patient if stable discharge in a.m.
--- NOTE | 2018-08-06 16:11 | Consultation ---
DATE OF CONSULTATION: 08/05/[address] Reyes. HISTORY AND PHYSICAL: This is a 48-year-old [place] female patient who came to the Emergency Room complaining of chest pain. The patient has been seen by her own qualification engineer, her workup was negative. PAST MEDICAL HISTORY: COPD, asthma, hyperlipidemia, hypertension, seizure disorder, major depression. FAMILY HISTORY: Unremarkable. SOCIAL HISTORY: No history of smoking, alcohol abuse. ALLERGIES: THE PATIENT IS ALLERGIC TO MACROBID, DARVOCET, MORPHINE, DEMEROL, IODINE, HYDROCODONE, NORCO, LIPITOR, CODEINE, SULFA, PENICILLIN, NITROFURANTOIN, CIPRO, KEFLEX, ASPIRIN. FAMILY HISTORY: Unremarkable. SOCIAL HISTORY: No history of smoking, alcohol abuse. PHYSICAL EXAMINATION: VITAL SIGNS: Blood pressure on admission 200/100, at the present time blood pressure is 150/93, pulse 70, respirations 20. HEENT: Head: Normocephalic. No lumps or bumps. Eyes: Pupils equal, reactive to light. Fundi show AV nicking. Sclerae white. Conjunctivae pink. NECK: Carotid 2+. Normal upstroke. JVD flat. Thyroid not palpable. Lymph nodes not palpable. CHEST: Shows increased AP diameter. No kyphosis, scoliosis. LUNGS: Bilateral bronchovesicular breath sounds. HEART: PMI fifth intercostal space with lateral to midclavicular line. S1, S2. No S3, S4. Soft systolic murmur. ABDOMEN: Soft. Liver, spleen not palpable. No organomegaly. Bowel sounds active. NEUROLOGICAL: Unremarkable. EXTREMITIES: Peripheral pulses 2+. No pedal edema. CLINICAL IMPRESSION: Chest pain, unlikely coronary artery disease, hypertension, uncontrolled asthma, chronic obstructive pulmonary disease, hyperlipidemia, psychosis, anxiety, seizure disorder. PLAN: The patient to get troponin level, EKG, echocardiogram and monitor the patient. JOB# [id number]
--- NOTE | 2018-08-06 17:18 | Cardiology ---
08/06/[address] Reyes. M-MODE ECHOCARDIOGRAM: Mitral valve, anterior leaflet of mitral valve shows normal excursion, EF velocity. Posterior leaflet of the mitral valve shows normal excursion. Left ventricular posterior wall shows increased thickness, normal excursion. Interventricular septum shows increased thickness, normal excursion, hypertrophy of the left ventricle, ejection fraction 77%. Left atrium normal. Aortic root shows normal dimension, normal excursion of aortic leaflets. CONCLUSION: Hypertrophy of the left ventricle, ejection fraction 77%. 2D ECHO: Long axis view showed normal sized left ventricle with hypertrophy of the left ventricle. Left atrium normal. Aortic root shows normal dimension, normal excursion of aortic leaflets. Short axis view of mitral valve normal. Short axis view of aortic valve normal. Apical four chamber view showed normal sized left ventricle with hypertrophy of the left ventricle. Left atrium normal. Right ventricular cavity, right atrium normal, no pericardial effusion. Ejection fraction 77%. CONCLUSION: Hypertrophy of the left ventricle, ejection fraction 77%. Doppler study shows mild mitral regurgitation, mild tricuspid regurgitation, moderate pulmonary regurgitation, right ventricular systolic pressure 33 mmHg. JOB# [id number]
--- NOTE | 2018-08-06 20:44 | Consultation ---
DATE OF CONSULTATION: 08/06/2018 PSCYCHIATRIC CONSULTATION PHYSICIAN REQUESTING PHYSICIAN: Kyler Reyes D.O. REASON FOR CONSULTATION: History of schizoaffective disorder. HISTORY OF PRESENT ILLNESS: This patient is a 48-year-old living with her family. Information obtained directly interviewing the patient as well as reviewing the admission papers. The patient has been known to me from the past at least 10 years and the patient has been diagnosed to have schizoaffective disorder. The patient has been presenting with acute chest pain and the patient is stating that she is not able to walk and she has been having shortness of breath and hence presented in here to the Emergency Room where from she has been admitted to the medical floor. The patient is being currently worked up. The patient has been spoken to and is stating that she is not able to sleep and has been having lot of anxiety. The patient is paranoid, but denies any command hallucinations. PAST PSYCHIATRIC HISTORY: The patient has been hospitalized on multiple occasions. MEDICAL HISTORY: Significant for the patient has hypertension, asthma, restless leg syndrome and IBS. SOCIAL HISTORY: The patient lives with her family. SEXUAL ABUSE HISTORY: None. PHYSICAL OR SEXUAL ABUSE HISTORY: None. LEGAL PROBLEMS: None at this time. MENTAL STATUS EXAMINATION: The patient is a 48-year-old, looking her stated age, superficially cooperative. Eye contact is noted to be fair. Mood is anxious. The patient is not presently with suicidal or homicidal ideation. The patient has been having poor coping skills. The patient is stating that she could not bear it out that she is not able to relax. The patient's coping skills at this time are noted to be poor. The patient is alert and oriented x 3. The patient has been having paranoia, but denies any command hallucinations. The patient is motivated to seek treatment. DIAGNOSTIC IMPRESSION: AXIS I: Schizoaffective disorder. AXIS II: None. AXIS III: As per Dr. Reyes. IMMEDIATE TREATMENT PLAN: To continue the patient with the lower dose of the Klonopin on a p.r.n. basis and follow the patient as needed. Thank you, Dr. Reyes for allowing me to participate in the care of the patient. JOB# [id number]
[2018-08-07] MEDS: NITROGLYCERIN OINT 2% 1 INCH PACKET TP SCH ×4 (00:57→11:51)
[2018-08-07] MEDS: Levothyroxine 0.025 Mg Tab PO SCH (08:36)
[2018-08-07] MEDS: Pantoprazole 40 mg EC Tab PO SCH (08:36)
[2018-08-07] MEDS: Heparin Sod 5,000Units/ML 5,000 UNITS/ML VIAL SUBQ SCH (08:36)
--- NOTE | 2018-08-07 12:09 | General Progress Note ---
Subjective - Review of Systems Service Date: 08/07/18 Subjective: Patient has no complaint of chest pain today Objective - Results Result Diagrams: 08/05/18 15:38 08/06/18 06:30 Recent Labs: Laboratory Last Values WBC 4.9 Th/cmm (4.8-10.8) 08/05/18 15:38 RBC 4.16 Mil/cmm (3.80-5.10) 08/05/18 15:38 Hgb 12.8 gm/dL (12-16) 08/05/18 15:38 Hct 38.6 % (41.0-60) L 08/05/18 15:38 MCV 92.7 fl (81-100) 08/05/18 15:38 MCH 30.8 pg (27.0-31.0) 08/05/18 15:38 MCHC Differential 33.2 pg (28.0-36.0) 08/05/18 15:38 RDW 12.0 % (11.5-20.0) 08/05/18 15:38 Plt Count 238 Th/cmm (150-400) 08/05/18 15:38 MPV 7.7 fl 08/05/18 15:38 Neutrophils % 64.0 % (40.0-80.0) 08/05/18 15:38 Lymphocytes % 28.9 % (20.0-50.0) 08/05/18 15:38 Monocytes % 6.5 % (2.0-10.0) 08/05/18 15:38 Eosinophils % 0.6 % (0.0-5.0) 08/05/18 15:38 Basophils % 0.0 % (0.0-2.0) 08/05/18 15:38 PT 10.1 SECONDS (9.5-11.5) 08/05/18 15:38 INR 0.97 (0.5-1.4) 08/05/18 15:38 D-Dimer < 100 ng/mL (100-400) L 08/05/18 15:38 Sodium 139 mEq/L (136-145) 08/06/18 06:30 Potassium 4.1 mEq/L (3.5-5.1) 08/06/18 06:30 Chloride 100 mEq/L (98-107) 08/06/18 06:30 Carbon Dioxide 32.6 mEq/L (21.0-31.0) H 08/06/18 06:30 Anion Gap 10.5 (7.0-16.0) 08/06/18 06:30 BUN 10 mg/dL (7-25) 08/06/18 06:30 Creatinine 0.7 mg/dL (0.6-1.2) 08/06/18 06:30 Est GFR ( Amer) > 60.0 ml/min (>90) 08/06/18 06:30 Est GFR (Non-Af Amer) > 60.0 ml/min 08/06/18 06:30 BUN/Creatinine Ratio 14.3 08/06/18 06:30 Glucose 111 mg/dL (70-105) H 08/06/18 06:30 Calcium 9.5 mg/dL (8.6-10.3) 08/06/18 06:30 Total Bilirubin 0.3 mg/dL (0.3-1.0) 08/05/18 15:38 AST 22 U/L (13-39) 08/05/18 15:38 ALT 9 U/L (7-52) 08/05/18 15:38 Alkaline Phosphatase 38 U/L (34-104) 08/05/18 15:38 Creatine Kinase 83 U/L (30-223) 08/05/18 15:38 Troponin I < 0.01 ng/mL (0.01-0.05) L 08/06/18 06:30 B-Natriuretic Peptide 16.4 pg/mL (5.0-100.0) 08/05/18 15:38 Total Protein 7.3 gm/dL (6.0-8.3) 08/05/18 15:38 Albumin 4.3 gm/dL (3.7-5.3) 08/05/18 15:38 Globulin 3.0 gm/dL 08/05/18 15:38 Albumin/Globulin Ratio 1.4 (1.0-1.8) 08/05/18 15:38 Triglycerides 72 mg/dL (<150) 08/05/18 15:38 Cholesterol 226 mg/dL (<200) H 08/05/18 15:38 LDL Cholesterol Direct 137 mg/dL (75-193) 08/05/18 15:38 HDL Cholesterol 61 mg/dL (23-92) 08/05/18 15:38 TSH 2.05 uIU/ml (0.34-5.60) 08/06/18 06:30 Serum , Qual NEGATIVE (NEGATIVE) 08/05/18 15:38 Urine Source CLEAN C 08/05/18 15:30 Urine Color YELLOW 08/05/18 15:30 Urine Clarity CLEAR (CLEAR) 08/05/18 15:30 Urine pH 8.0 (4.6 - 8.0) 08/05/18 15:30 Ur Specific [place] 1.020 (1.005-1.030) 08/05/18 15:30 Urine Protein NEGATIVE mg/dL (NEGATIVE) 08/05/18 15:30 Urine Glucose (UA) NEGATIVE mg/dL (NEGATIVE) 08/05/18 15:30 Urine Ketones NEGATIVE mg/dL (NEGATIVE) 08/05/18 15:30 Urine Blood NEGATIVE (NEGATIVE) 08/05/18 15:30 Urine Nitrate NEGATIVE (NEGATIVE) 08/05/18 15:30 Urine Bilirubin NEGATIVE (NEGATIVE) 08/05/18 15:30 Urine Urobilinogen 0.2 E.U./dL (0.2 - 1.0) 08/05/18 15:30 Ur Leukocyte Esterase NEGATIVE (NEGATIVE) 08/05/18 15:30 Urine RBC 0-2 /hpf (0-5) 08/05/18 15:30 Urine WBC 2-5 /hpf (0-5) 08/05/18 15:30 Ur Epithelial Cells FEW /lpf (FEW) 08/05/18 15:30 Urine Bacteria FEW /hpf (NONE SEEN) 08/05/18 15:30 Urine Mucus FEW /lpf (FEW) 08/05/18 15:30 - Physical Exam Vitals and I&O: Vital Signs Temp 97.2 F 08/07/18 11:32 Pulse 67 08/07/18 11:51 Resp 18 08/07/18 11:32 BP 119/79 08/07/18 11:51 Pulse Ox 98 08/07/18 11:32 Intake & Output 08/06/18 08/07/18 08/07/18 18:59 06:59 18:59 Intake Total 1200 250 Balance 1200 250 Weight (lbs) 59.874 kg 59.874 kg Intake: Oral 1200 250 Other: # Voids 4 5 # Bowel Movements 1 0 Stool Characteristics Form[facility] Medications: Current Medications Acetaminophen (Tylenol) 650 mg PO Q4H PRN PRN Reason: Pain Or Fever above 101 Stop: 10/04/18 19:23 Last Admin: 08/06/18 15:35 Dose: 650 mg Albuterol Sulfate (Albuterol 2.5mg/3ml Neb Ud) 2.5 mg HHN Q2HRT PRN PRN Reason: Shortness of Breath or Wheeze Stop: 10/04/18 19:23 Clonazepam (Klonopin) 0.5 mg PO BID PRN; Protocol PRN Reason: Anxiety Stop: 10/06/18 08:59 Divalproex Sodium (Depakote Er) 500 mg PO HS RENZO; Protocol Stop: 10/04/18 20:59 Last Admin: 08/06/18 21:07 Dose: 500 mg Docusate Sodium (Colace) 250 mg PO BID [facility] Stop: 10/05/18 08:59 Last Admin: 08/07/18 08:35 Dose: 250 mg Guaifenesin (Robitussin) 200 mg PO Q4HR PRN PRN Reason: Cough or Congestion Stop: 10/04/18 19:23 Heparin Sodium (Porcine) (Heparin) 5,000 units SUBQ Q12HR RENZO Stop: 10/04/18 20:59 Last Admin: 08/07/18 08:36 Dose: 5,000 units Hydrochlorothiazide (Hctz) 25 mg PO DAILY [facility] Stop: 10/05/18 12:29 Last Admin: 08/07/18 08:35 Dose: 25 mg Hydromorphone HCl (Dilaudid) 2 mg PO Q4HR PRN PRN Reason: Chest Pain Stop: 10/04/18 19:28 Ipratropium [place] (Atrovent Neb 0.5mg/2.5ml) 0.5 mg HHN Q2HRT PRN PRN Reason: Shortness of Breath or Wheeze Stop: 10/04/18 19:23 Levothyroxine Sodium (Synthroid) 0.025 mg PO DAILY [facility] Stop: 10/05/18 08:59 Last Admin: 08/07/18 08:36 Dose: 0.025 mg Loratadine (Claritin) 10 mg PO DAILY [facility] Stop: 07/28/19 08:59 Last Admin: 08/07/18 08:36 Dose: 10 mg Losartan Potassium (Cozaar) 50 mg PO BID [facility] Stop: 10/05/18 08:59 Last Admin: 08/07/18 08:35 Dose: 50 mg Metoprolol Succinate (Toprol Xl) 50 mg PO QPM [facility] Stop: 10/04/18 19:26 Last Admin: 08/06/18 16:02 Dose: 50 mg Mirtazapine (Remeron) 30 mg PO HS [facility] Stop: 10/04/18 20:59 Nitroglycerin (Nitrostat) 0.4 mg SL Q5MIN PRN PRN Reason: Chest Pain Stop: 10/04/18 19:23 Nitroglycerin (Nitro-Bid) 1 inch TP Q6HR [facility] Stop: 10/05/18 00:00 Last Admin: 08/07/18 11:51 Dose: 1 inch Ondansetron HCl (Zofran) 4 mg IV Q8H PRN PRN Reason: Nausea / Vomiting Stop: 10/04/18 19:23 Last Admin: 08/06/18 01:45 Dose: 4 mg Pantoprazole Sodium (Protonix) 40 mg PO DAILY [facility] Stop: 10/05/18 08:59 Last Admin: 08/07/18 08:36 Dose: 40 mg Ropinirole HCl (Requip) 0.5 mg PO HS [facility] Stop: 10/04/18 20:59 Last Admin: 08/06/18 21:07 Dose: 0.5 mg General: Alert, Oriented x3, No acute distress HEENT: Mucous membr. moist/pink Neck: Supple, JVD, +2 carotid pulse wo bruit (flat) Cardiovascular: Regular rate, Normal S1, Normal S2, Systolic murmurs Lungs: Clear to auscultation, Normal air movement Abdomen: Bowel sounds, Soft, Other (no organomegaly) Extremities: Pulses (normal) Neurological: Normal gait, Strength at 5/5 X4 ext, Cranial nerves 3-12 NL, Reflexes 2+ Assessment/Plan - Assessment Assessment: Chest pain unlikely coronary artery disease Asthma COPD Hyperlipidemia Seizure disorder Psychosis Anxiety Echocardiogram showed ejection fraction 77% with the mild mitral regurgitation mild tricuspid regurgitation moderate pulmonary regurgitation right ventricular systolic pressure 33 mmHg - Plan Plan: Continue present management ambulate the patient if stable discharge
--- NOTE | 2018-08-07 14:26 | Discharge Summary ---
DATE OF DISCHARGE: 08/07/2018 CHIEF COMPLAINT: Chest pain. FINAL DIAGNOSES: 1. Atypical chest pain. 2. Hypertension, of out control. 3. Asthma. 4. Chronic obstructive pulmonary disease. 5. Hypercholesterolemia. 6. Psychiatric disorder. 7. Seizure. 8. Multiple medication allergies. HISTORY: This is a 48-year-old female with history of asthma, COPD, high cholesterol, hypertension, seizure, admitted from her psychiatrist's office secondary to blood pressure in the 200s and chest pain. The patient is evaluated for further management. PHYSICAL EXAMINATION: VITAL SIGNS: Blood pressure 190/79, respiration 18, pulse is ____. GENERAL: Elderly female, appears her stated age. NECK: Supple. No mass. LUNGS: Equal breath sounds with few rhonchi. HEART: Regular rate and rhythm without appreciable murmur. ABDOMEN: Soft, nontender. EXTREMITIES: No clubbing, cyanosis or edema. HOSPITAL COURSE: The patient was admitted to telemetry. Continued on oxygen and bronchodilator treatment. The patient was given nitroglycerin. Troponins were sent and negative x 3. The patient was referred to the Cardiology, Dr. Justice Coleman. Today, echocardiogram was performed. The patient also was referred to her psychiatrist. Her psychotropic medications were adjusted. The patient was cleared for discharge. CONDITION ON DISCHARGE: Fair. DISCHARGE INSTRUCTIONS: The patient to continue with current care. The patient will follow with her own ibm bpm developer upon discharge for further stress test. JOB# [id number]
== END 2018-08-07 13:19 | disposition home or self-care (01) ==
LOC: ER 14:52 → TELE 17:28
PROVIDERS: ADMIT Internal Medicine; ATTEND Internal Medicine
DX: R07.89 Other chest pain (principal); I10 Essential (primary) hypertension; E78.5 Hyperlipidemia, unspecified; J44.9 Chronic obstructive pulmonary disease, unspecified; Z82.49 Family history of ischemic heart disease and other diseases of the circulatory system
CPT/HCPCS: 36415-UA; 71045-TC; 80048-TC; 80053-TC; 80061-TC; 81001-TC; 82550-TC; 83036-90; 83880-TC; 84443-TC; 84484-TC; 84703-TC; 85025-TC; 85379-TC; 85610-TC; 93005; 93307-TC; 94760; G0378; J1644; J2405; Z7610

== ENCOUNTER 2018-08-15 09:12 | Emergency (ER) | payer MEDICARE, MEDICAID ==
--- NOTE | 2018-08-15 09:33 | ED Physician Chart ---
ED Chief Complaint/HPI - Patient Information Date Seen:: 08/15/18 Time Seen:: 09:28 Chief Complaint:: left middle finger History of Present Illness:: this is a 48 yo female who states that she sustained an abrasion of the the left middle finger while preparing some apples this am. she states that her immunizations are not up to date. Allergies:: Allergies Allergy/AdvReac Type Severity Reaction Status Date / Time aspirin Allergy Verified 07/31/18 15:56 cephalexin [From Keflex] Allergy Verified 07/31/18 15:56 chicken derived Allergy Verified 07/31/18 15:56 ciprofloxacin [From Cipro] Allergy Verified 07/31/18 15:56 egg Allergy Verified 07/31/18 15:56 ibuprofen Allergy Verified 07/31/18 15:56 lubiprostone [From Amitiza] Allergy Verified 07/31/18 15:56 nitrofurantoin Allergy Verified 07/31/18 15:56 [From Macrobid] peanut Allergy Verified 07/31/18 15:56 Penicillins Allergy Verified 07/31/18 15:56 pork derived (porcine) Allergy Verified 07/31/18 15:56 sesame oil Allergy Verified 07/31/18 15:56 sesame seed Allergy Verified 07/31/18 15:56 shellfish derived Allergy Verified 07/31/18 15:56 Sulfa (Sulfonamide Allergy Verified 07/31/18 15:56 Antibiotics) atorvastatin [From Lipitor] AdvReac Verified 07/31/18 15:56 codeine AdvReac Verified 07/31/18 15:56 erythromycin base AdvReac Verified 07/31/18 15:56 hydrocodone [From Vicodin] AdvReac Verified 07/31/18 15:56 iodine AdvReac Verified 07/31/18 15:56 meperidine [From Demerol] AdvReac Verified 07/31/18 15:56 morphine AdvReac Verified 07/31/18 15:56 propoxyphene AdvReac Verified 07/31/18 15:56 [From Darvocet-N] macrobid Allergy Uncoded 03/02/18 12:14 Historian:: Patient Review:: Nurse's Note Reviewed, Old Chart Reviewed ED Review of Systems - Review of Systems General/Constitutional: No fever, No chills, No weight loss, No weakness, No diaphoresis, No edema, No loss of appetite Skin: No skin lesions, No rash, No bruising, Other (a small abrasion of the distal left middle finger on the dorsal side, rom and sensory are both normal.) Head: No headache, No light-headedness Eyes: No loss of vision, No pain, No diplopia ENT: No earache, No nasal drainage, No sore throat, No tinnitus Neck: No neck pain, No swelling, No thyromegaly, No stiffness, No mass noted Cardio Vascular: No chest pain, No palpitations, No PND, No orthopnea, No edema Pulmonary: No SOB, No cough, No sputum, No wheezing GI: No nausea, No vomiting, No diarrhea, No pain, No melena, No hematochezia, No constipation, No hematemesis G/U: No dysuria, No frequency, No hematuria Musculoskeletal: No bone or joint pain, No back pain, No muscle pain Endocrine: No polyuria, No polydipsia Psychiatric: No prior psych history, No depression, No anxiety, No suicidal ideation Hematopoietic: No bruising, No lymphadenopathy Allergic/Immuno: No urticaria, No angioedema Neurological: No syncope, No focal symptoms, No weakness, No paresthesia, No headache, No seizure, No dizziness, No confusion, No vertigo ED Past Medical History - Past Medical History Obtainable: Yes Past Medical History: HTN, Dyslipidemia, PUD/GERD, Thyroid disorder, Other ( psychosis) Family History: Cancer (grandparents) Social History: Non Smoker, No Alcohol, No Drug Use, Single Surgical History: Hysterectomy, other (tubaligation) Psychiatricy History: Schizophrenia Medication: Reviewed Family Medical History - Family Member Father History Unknown: Yes Ethnicity: Non- Living Status: Still Living Hx Family Cancer: No Hx Family Coronary Artery Disease: No Hx Family Congestive Heart Failure: No Hx Family Hypertension: Yes Hx Family Stroke: No Hx Family Diabetes: Yes Hx Family Seizures: No Hx Family Dementia: No Hx Family AIDS: No Hx Family HIV: No Hx Family COPD: No Hx Family Hepatitis: No Hx Family Psychiatric Problems: No Hx Family Tuberculosis: No Mother History Unknown: Yes Ethnicity: Non- Living Status: Still Living Hx Family Cancer: No Hx Family Coronary Artery Disease: No Hx Family Congestive Heart Failure: No Hx Family Hypertension: No Hx Family Stroke: No Hx Family Diabetes: Yes Hx Family Seizures: No Hx Family Dementia: No Hx Family AIDS: No Hx Family HIV: No Hx Family COPD: No Hx Family Hepatitis: No Hx Family Psychiatric Problems: No Hx Family Tuberculosis: No ED Physical Exam - Physical Examination General/Constitutional: Awake, Well-developed, well-nourished, Alert, No distress, GCS 15, Non-toxic appearing, Ambulatory Head: Atraumatic Eyes: Lids, conjuctiva normal, PERRL, EOMI Skin: Nl inspection, No rash, No skin lesions, No ecchymosis, Well hydrated, No lymphadenopathy ENMT: External ears, nose nl, Nasal exam nl, Lips, teeth, gums nl Neck: Nontender, Full ROM w/o pain, No JVD, No nuchal rigidity, No bruit, No mass, No stridor Respiratory: Nl effort/Exclusion, Clear to Auscultation, No Wheeze/Rhonchi/Rales Cardio Vascular: RRR, No murmur, gallop, rubs, NL S1 S2 GI: No tenderness/rebounding/guarding, No organomegaly, No hernia, Normal BS's, Nondistended, No mass/bruits, No McBurney tenderness : No CVA tenderness Extremities: No tenderness or effusion, Full ROM, normal strength in all extremities, No edema, Normal digits & nails ( dorsal distal left middle abrasion noted, not bleeding and small.) Neuro/Psych: Alert/oriented, DTR's symmetric, Normal sensory exam, Normal motor strength, Judgement/insight normal, Mood normal, Normal gait, No focal deficits Misc: Normal back, No paraspinal tenderness ED Assessment - Assessment General Assessment: abrasion of the middle finger. ED Septic Shock - . Is Septic Shock (SBP<90, OR Lactate>4 mmol\L) present?: No ED Reassessment (Disposition) - Reassessment Reassessment Condition:: Improved - Diagnosis Diagnosis:: left middle finger abrasion - Aftercare/Follow up Instructions Aftercare/Follow-Up Instructions:: Counseled pt regarding lab results/diagnosis & need follow up, Refer to Discharge Instructions, Counseled pt & family regarding lab results/diagnosis & need follow up Medication Prescribed:: tetracycline - Patient Disposition Discharge/Transfer:: Home Condition at Disposition:: Improved
== END 2018-08-15 09:45 | disposition home or self-care (01) ==
LOC: ER 09:12
DX: S60.413A Abrasion of left middle finger, initial encounter (principal); I10 Essential (primary) hypertension; E78.5 Hyperlipidemia, unspecified; E07.9 Disorder of thyroid, unspecified; K21.9 Gastro-esophageal reflux disease without esophagitis; F20.9 Schizophrenia, unspecified; Z90.710 Acquired absence of both cervix and uterus; Z88.0 Allergy status to penicillin; Z88.1 Allergy status to other antibiotic agents; Z88.2 Allergy status to sulfonamides; Z88.5 Allergy status to narcotic agent; Z88.8 Allergy status to other drugs, medicaments and biological substances; X58.XXXA Exposure to other specified factors, initial encounter; Y93.89 Activity, other specified; Y92.89 Other specified places as the place of occurrence of the external cause; Y99.8 Other external cause status
CPT/HCPCS: Z7502